=== PATIENT | female | born 1965 | race Caucasian/White ===

== ENCOUNTER → 2017-11-12 09:32 | Outpatient (CLI) | payer OTHER, SELFPAY ==
[2017-11-12 12:32] LABS: BUN 20 mg/dL (7-18); Glucose 86 mg/dL (74-106)
[2017-11-12 12:33] LABS: ALB/GLOB Ratio 1.1 RATIO (0.9-2.4); AST(SGOT) 17 U/L (15-37); Alanine Aminotransfer ALT/SGPT 30 U/L (13-56); Albumin, Serum 3.9 g/dL (3.2-5.0); Alkaline Phosphatase 51 U/L (45-117); Anion Gap 8 (5-15); BUN/Creat Ratio 28.7 RATIO (10-20); Calcium,Total 8.8 mg/dL (8.5-10.1); Chloride 104 mmol/L (98-107); Cholesterol 181 mg/dL (200); EST Glomerular Filtration Rate 93 mL/min (>60); Est Glom Filt Rate - Afr Amer 113 mL/min (>60); Globulin 3.4 g/dL (2.2-4.2); High Density Lipoprotein 45 mg/dL; Protein, Total 7.3 g/dL (6.4-8.2); Sodium Level 139 mmol/L (136-145); Triglycerides 91 mg/dL; Very Low Density Lipoprotein 18 mg/dL (5-40)
== END ==
PROVIDERS: Family Provider Family Medicine; PCP Family Medicine; Visit Provider Family Medicine
DX: E78.1 Pure hyperglyceridemia (principal)
CPT/HCPCS: 36415; 80053; 80061

== ENCOUNTER → 2017-12-12 08:23 | Outpatient (CLI) | payer OTHER, SELFPAY ==
[2017-12-12 10:37] LABS: Cholesterol 216 mg/dL (200); High Density Lipoprotein 38 mg/dL; Triglycerides 134 mg/dL; Very Low Density Lipoprotein 27 mg/dL (5-40)
== END ==
PROVIDERS: Family Provider Family Medicine; PCP Family Medicine; Visit Provider Family Medicine
DX: E78.1 Pure hyperglyceridemia (principal)
CPT/HCPCS: 36415; 80061

== ENCOUNTER → 2018-04-25 12:34 | Outpatient (CLI) | payer OTHER, SELFPAY ==
--- NOTE | 2018-04-25 12:36 | BI_ITS ---
MAMMOGRAPHY - BILATERAL SCREENING REASON FOR EXAM: Female, 52 years old. Routine annual screening examination. PERTINENT HISTORY: Sister with breast cancer. History of bilateral breast reduction surgery. TECHNIQUE: Digital bilateral breast keenan (3D mammographic acquisition) in the CC and MLO projections. 2-D mediolateral oblique (MLO) and craniocaudad (CC) views of both breasts were obtained. CAD: Full Field Digital Mammography with Computer Added Detection was performed. COMPARISON: Comparison is made with prior study dated November 10, 2016. FINDINGS: Breast Composition: The breasts are heterogeneously dense, which may obscure small masses. There are no dominant masses or suspicious calcifications. Benign appearing fat-containing bilateral axillary lymph nodes. No other significant abnormalities are identified. There has been no significant change since the prior study. BI/SCREENING MAMM (CAD), BILAT IMPRESSION: Stable bilateral screening mammogram. Yearly follow-up mammogram recommended. (A) ASSESSMENT CATEGORY: BIRADS Category 2: Benign. A letter regarding these results will be sent to the patient by the facility within 30 days. Approximately 10% of breast cancers are not detected by mammography. A normal mammogram should not delay biopsy of a clinically suspicious abnormality. [id number] Electronically Signed: Kevan Lopez MD at 10:42 EDT Tel [phone], Service support ,
== END ==
PROVIDERS: Family Provider Family Medicine; PCP Family Medicine; Visit Provider Family Medicine
DX: Z12.31 Encounter for screening mammogram for malignant neoplasm of breast (principal)
CPT/HCPCS: 77063; 77067

== ENCOUNTER 2018-12-18 10:00 | Outpatient (RCR) | payer OTHER, SELFPAY ==
--- NOTE | 2018-11-15 16:08 | HP.PTEVAL ---
Patient's Visit Information NIKHIL NIETO is a 53 year old F referred to Physical Therapy by Jayant Nieto MD with a diagnosis of Plantar fasciitis. Date of Evaluation: 11/15/18 Physical Therapist: FIGUEROA Connor - Visit Plan Frequency: 2x /Week Duration: 6 Weeks Plan: 2X/ week for US to B PF of B feet, stretching of B HS, gastroc, plantar fascia, with MT to B feet as well. If pt is no better after US/ serious stretching 3 X/ day then may try Ionto with dexameth. - Subjective Findings: Pt reports that she has had PF since last March (2017) in both feet and now it is much worse in the L foot. Saw Dr in April and recommended soleus stretches with ice and rest and she did a lot of that. She has gotten 7-8 different types of inserts. She does not walk her dog. She is in a lot of pain if she walks more than a block. A year ago she broke her R foot and was at PT at the other [facility] in town but never had PF before. 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 Current symptoms: she has ani in heel and the arch of her foot and sometimes the ball of her foot hurts. She has continues to stretch (sitting and pull toes up, soleus stretches ( against the wall and rocks it so it hurts several spots), she rubs her foot against the wooded arm rest of couch ( hurts but feels good). She does not ice much. If she walks 3-4 blocks then she ices cause there is a lot of pain. She has injured the L ankle several times in her life and her achilles tendon the L is shortened from a poorly treated sprainedankle and was casted into PF, and also had sesemoid bone removed on the L due to fracture in 2003. Having to stand is the worst. She sleeps through the night. Sometimes the feet are going numb now but not frequently. She has a lot of pain in the first steps in the moring and hard to put weight on it. - Pain R foot pain Pain Intensity (Out of 10): 2 L foot pain Pain Intensity (Out of 10): 4 - Objective Gait: Walks with stance time on the L and does not walk with heel to toe gait pattern. Pt is unable to walk on her heels. She can walk on her toes. L ankle AROM: neutral DF and 59 degrees PF, 18 degrees INV and 9 degrees EV. R ankle AROM: 11 degrees DF and 64 degrees PF, 32 degrees INV and 9 degrees EV. Palpation: Tender B heels and PF (worst on the L versus the R) also tender along the metheads ( alot of increased motion along the metatarsals). B ankle MMT: DF, PF, INV and EV 4+/5 - Goals Goal 1:: I HEP Goal Time Frame: 4-6 Weeks Goal 2:: Be able to stand on her feet for 4 hours at a time without having B foot pain. Goal Time Frame: 4-6 Weeks Goal 3:: Increase L ankle AROM to equal that of the R. (L ankle AROM: neutral DF and 59 degrees PF, 18 degrees INV and 9 degrees EV. R ankle AROM: 11 degrees DF and 64 degrees PF, 32 degrees INV and 9 degrees EV). Goal Time Frame: 4-6 Weeks Goal 4:: Be able to walk her dogs without having B foot pain Goal Time Frame: 4-6 Weeks - Rehabilitation Potential Rehabilitation Potential: Good - Anticipated Interventions Patient/Client Instruction: Educate patient on: Condition, Plan of Care For the Purpose of:: To decrease pain, To increase ROM, To improve nutrient delivery to tissue, To improve muscle performance and motor function, To improve ability to perform ADL's, To increase tolerance to activity/condition/position, To improve performance and independence with ADL's, To improve ability of physical actions for home/community/work/leisure, To improve gait and locomotor functions, To improve health of tissue, To decrease soft tissue restriction, To increase flexibility/ROM Therapeutic Exercise to Include: Strength training, Postural training, Flexibilty training, Gait and locomotor training, Passive ROM, Active ROM For the Purpose of:: To decrease pain, To increase ROM, To improve nutrient delivery to tissue, To improve muscle performance and motor function, To improve ability to perform ADL's, To increase tolerance to activity/condition/position, To improve performance and independence with ADL's, To improve ability of physical actions for home/community/work/leisure, To improve health of tissue, To decrease soft tissue restriction, To increase flexibility/ROM Manual Therapy Techniques to Include: Passive ROM, Soft tissue mobilization For the Purpose of:: To decrease pain, To increase ROM, To improve nutrient delivery to tissue, To improve muscle performance and motor function, To improve ability to perform ADL's IF ES: Yes Ultrasound (thermal/non thermal): Yes For the Purpose of:: To decrease pain, To decrease swelling/inflammation, To increase ROM, To improve nutrient delivery to tissue Thank you for the opportunity to evaluate your patient. For Medicare and Medicare HMO plans, please review the plan of care and approve it. It will need to be FAXED BACK to us at [phone] for Medicare purposes. For Medicare only, by signing this I certify the plan of care. Please let me know if there are questions or concerns regarding this plan of care. Physician Signature: Date:
--- NOTE | 2018-12-18 12:11 | HP.PTDCSUM_ITS ---
HP - PT D/C Summary It has been my pleasure to treat NIKHIL NIETO under orders from Jayant Nieto MD, for the diagnosis of Plantar fasciitis for a total of 11 visit(s). Discharge Date: 12/18/18 Please see the following information for a summary of their discharge status. - Subjective Subjective: Pt reports that some days are better than others. She reports that it still hurts when she is standing on her feet. Activity equals pain. Pt thinks that the massage and the ionto may have helped. She reports that she is strengthening at home. She will be leaving to go to [place] next week and today is her last appointment. - Pain R foot pain Pain Intensity (Out of 10): 0 L foot pain Pain Intensity (Out of 10): 4 L ankle Pain Intensity (Out of 10): Unrated - Overall Improvement % Improvement: 10 - Objective Objective/Function: DF B 4 degrees. Pt still not able to stand on her feet for any length of time and she is not able to walk her dogs. - Goals Goal 1:: I HEP Goal Progress: Goal Met Goal 2:: Be able to stand on her feet for 4 hours at a time without having B foot pain. Goal Progress: Not Progressing Goal 3:: Increase L ankle AROM to equal that of the R. (L ankle AROM: neutral DF and 59 degrees PF, 18 degrees INV and 9 degrees EV. R ankle AROM: 11 degrees DF and 64 degrees PF, 32 degrees INV and 9 degrees EV). Goal Progress: Progressing Goal 4:: Be able to walk her dogs without having B foot pain Goal Progress: Not Progressing - Plan Plan: DC PT to HEP - D/C Information Discharge Comments: DC PT to [facility] If there are questions or concerns regarding this patient's physical therapy, please feel free to call me at [phone]. Thank you for the referral of this patient. Sincerely, Liana Fleming, MPT
== END 2018-12-18 19:00 | disposition home or self-care (01) ==
LOC: PT 10:00
PROVIDERS: Family Provider Family Medicine; PCP Family Medicine; Referring Provider Family Medicine; Visit Provider Family Medicine
DX: M72.2 Plantar fascial fibromatosis (principal)
CPT/HCPCS: 97033; 97035; 97110; 97140; 97161

== ENCOUNTER → 2019-05-10 09:34 | Outpatient (CLI) | payer OTHER, SELFPAY ==
[2019-05-10 10:41] LABS: Absolute Lymphocyte Count 1.36 X10^3/uL (0.83-4.51); Absolute Neutrophil Count 1.7 X10^3/uL (2.0-7.7); Basophil# 0.02 X10^3/uL; Basophil% 0.6 % (0-1); Eosinophil# 0.05 X10^3/uL; Eosinophils% 1.5 % (0-5); Hemoglobin 14.7 g/dL (12.0-15.0); Lymphocyte # 1.36 X10^3/ul (4.0); Lymphocyte % 40.6 % (19-41); Mean Corp Hgb Conc 33.4 g/dL (32-36); Mean Corpuscular Hgb 30.6 pg (27.0-32.0); Mean Corpuscular Volume 91.7 fL (81-99); Mean Platelet Vol. 9.6 fl (6.2-12.0); Monocyte# 0.23 X10^3/uL; Monocyte% 6.9 % (0-10); NRBC Flagged by Analyzer 0 % (0-5); Neutrophil # 1.67 X10^3/uL (2.7-7.7); Neutrophil % 49.8 % (47-70); Platelet Count 269 K/mm3 (150-450); RBC Distribution Width CV 12.1 % (11.6-14.6); RBC Distribution Width SD 40.5 fl (35.1-43.9); White Blood Count 3.4 K/mm3 (4.4-11.0)
[2019-05-10 11:23] LABS: ALB/GLOB Ratio 1.2 RATIO (0.9-2.4); AST(SGOT) 19 U/L (15-37); Alanine Aminotransfer ALT/SGPT 38 U/L (13-56); Albumin, Serum 3.7 g/dL (3.2-5.0); Alkaline Phosphatase 54 U/L (45-117); Anion Gap 5 (5-15); BUN 16 mg/dL (7-18); BUN/Creat Ratio 24.7 RATIO (10-20); Calcium,Total 8.4 mg/dL (8.5-10.1); Chloride 110 mmol/L (98-107); Cholesterol 185 mg/dL (200); Creatinine, Serum 0.65 mg/dL (0.55-1.02); EST Glomerular Filtration Rate 101 mL/min (>60); Est Glom Filt Rate - Afr Amer 122 mL/min (>60); Globulin 3.2 g/dL (2.2-4.2); Glucose 92 mg/dL (74-106); High Density Lipoprotein 39 mg/dL; Potassium 4.1 mmol/L (3.5-5.1); Protein, Total 6.9 g/dL (6.4-8.2); Sodium Level 143 mmol/L (136-145); Triglycerides 160 mg/dL; Very Low Density Lipoprotein 32 mg/dL (5-40)
[2019-05-12 09:01] LABS: Vitamin B12 1297 pg/mL (211-911); Vitamin D,25 Hydroxy 25.4 ng/mL (29.95-100.01)
== END ==
PROVIDERS: Family Provider Family Medicine; PCP Family Medicine; Referring Provider Family Medicine; Visit Provider Family Medicine
DX: E53.8 Deficiency of other specified B group vitamins (principal); E78.1 Pure hyperglyceridemia; E55.9 Vitamin D deficiency, unspecified; M79.672 Pain in left foot; T50.A95 Adverse effect of other bacterial vaccines
CPT/HCPCS: 36415; 80053; 80061; 82306; 82607; 82746; 85025

== ENCOUNTER → 2019-05-13 07:48 | Outpatient (CLI) | payer OTHER, SELFPAY ==
--- NOTE | 2019-05-13 07:50 | ECHOD_ITS ---
Reason For Study: FAM HX AA Procedure This was a 2D Doppler, Color Flow transthoracic echocardiogram. The exam was of adequate technical quality. Exam performed in department. Left Ventricle Normal LV size. Left ventricular systolic function is normal. The estimated ejection fraction is 65 %. Diastolic function is indeterminate. No regional wall motion abnormalities noted. Right Ventricle Normal RV size. Normal systolic function. Atria Normal left atrium. Normal right atrium. No doppler evidence for ASD. Mitral Valve There is no mitral annular calcification. Normal mitral valve. Mild (1+) mitral valve insufficiency. Tricuspid Valve Normal tricuspid valve. Trivial tricuspid valve insufficiency. Right ventricular systolic pressure estimated to be 20 mmHg. Aortic Valve Trisinus/trileaflet aortic valve. Normal aortic valve. Pulmonic Valve The pulmonic valve is not well visualized. Trivial pulmonic valve insufficiency. Great Vessels Borderline enlarged to mildly dilated ascending aorta. Pericardium/Pleural No pericardial effusion. MMode/2D Measurements & Calculations LVIDd: 4.4 cm IVSd: 0.88 cm Ao root diam: 3.9 cm LVIDs: 3.0 cm LVPWd: 0.89 cm RVDd: 3.1 cm FS: 31.0 % LAV(MOD-bp): 48.6 ml LVAd ap4: 30.9 cm2 SV(MOD-sp4): 52.7 ml LAV(MOD-bp) Indexed: 25.1 ml/m2 EDV(MOD-sp4): 96.7 ml LAV(MOD-sp2): 39.4 ml EDV(sp4-el): 99.0 ml LAV(MOD-sp4): 60.1 ml LVAs ap4: 18.3 cm2 ESV(MOD-sp4): 44.0 ml ESV(sp4-el): 43.7 ml EF(MOD-sp4): 54.5 % EF(sp4-el): 55.8 % SV(sp4-el): 55.3 ml LA A4 area: 19.6 cm2 LA dimension(2D): 3.6 cm RA A4 area: 14.1 cm2 Time Measurements MV dec time: 0.21 sec Doppler Measurements & Calculations MV E max rafael: 74.4 cm/sec Lat Peak E' Rafael: 7.6 cm/sec Med Peak E' Rafael: 4.0 cm/sec MV A max rafael: 91.4 cm/sec E/E' lat: 9.9 E/E' med: 18.6 MV E/A: 0.81 Ao V2 max: 168.0 cm/sec LV V1 max: 104.2 cm/sec PA V2 max: 89.4 cm/sec Ao max P.3 mmHg LV V1 max P.3 mmHg TR max rafael: 204.0 cm/sec TR max P.6 mmHg Interpretation Summary Left ventricular systolic function is normal. The estimated ejection fraction is 65 %. Mild (1+) mitral valve insufficiency. Trivial tricuspid valve insufficiency. Trivial pulmonic valve insufficiency. Borderline enlarged to mildly dilated ascending aorta. Right ventricular systolic pressure estimated to be 20 mmHg. Diastolic function is indeterminate. Ordering Physician: Jayant Nieto Referring Physician: Jayant Nieto Performed By: Meghan Nunes, LUIS, RVT
== END ==
PROVIDERS: Family Provider Family Medicine; PCP Family Medicine; Referring Provider Family Medicine; Visit Provider Family Medicine
DX: Z82.49 Family history of ischemic heart disease and other diseases of the circulatory system (principal)
CPT/HCPCS: 93306

== ENCOUNTER → 2019-05-14 07:42 | Outpatient (CLI) | payer OTHER, SELFPAY ==
--- NOTE | 2019-05-14 07:44 | BI_ITS ---
MAMMOGRAPHY - BILATERAL SCREENING REASON FOR EXAM: Female, 53 years old. Routine annual screening examination. PERTINENT HISTORY: Sister with breast cancer. Remote bilateral breast reduction and 3 episodes of mastitis. TECHNIQUE: Digital bilateral breast lisa (3D mammographic acquisition) in the CC and MLO projections. 2-D mediolateral oblique (MLO) and craniocaudad (CC) views of both breasts were obtained. CAD: Full Field Digital Mammography with Computer Added Detection was performed. COMPARISON: Comparison is made with prior study dated April 25, 2018 and November 10, 2016. FINDINGS: Breast Composition: The breasts are heterogeneously dense, which may obscure small masses. There are no dominant masses or suspicious calcifications. Stable asymmetry of breast tissue with more breast tissue is seen in the axillary region of the right breast as compared to the left side. Stable appearance of the fat-containing bilateral axillary lymph nodes. No other significant abnormalities are identified. There has been no significant change since the prior study. BI/SCREEN MAMM (CAD) W/LISA BILAT IMPRESSION: Stable bilateral screening mammogram. Yearly follow-up mammogram recommended. (A) ASSESSMENT CATEGORY: BIRADS Category 2: Benign. A letter regarding these results will be sent to the patient by the facility within 30 days. Approximately 10% of breast cancers are not detected by mammography. A normal mammogram should not delay biopsy of a clinically suspicious abnormality. [id number] Electronically Signed: Kevan Lopez, at 9:52 EDT , Service support ,
== END ==
PROVIDERS: Family Provider Family Medicine; PCP Family Medicine; Referring Provider Family Medicine; Visit Provider Family Medicine
DX: Z12.31 Encounter for screening mammogram for malignant neoplasm of breast (principal); Z80.3 Family history of malignant neoplasm of breast
CPT/HCPCS: 77063; 77067

== ENCOUNTER → 2020-03-29 08:57 | Outpatient (CLI) | payer OTHER, SELFPAY ==
--- NOTE | 2020-03-29 09:03 | RAD_ITS ---
STUDY: X-RAY CHEST REASON FOR EXAM: Female, 54 years old. Atypical chest pain TECHNIQUE: 2 PA and lateral views of the chest. COMPARISON: None. FINDINGS: The lungs are clear and expanded. There is no demonstrated pleural abnormality. Normal size heart. Normal mediastinum and harman. Normal visualized pulmonary arteries. Normal visualized aortic arch and descending thoracic aorta. Normal visualized thoracic spine. Normal visualized ribs, clavicles, and shoulders. There is no demonstrated abnormality of the visualized soft tissue structures of the upper abdomen. RAD/Chest PA and Lateral IMPRESSION: No acute pulmonary process Electronically Signed: Harrison Burgess MD at 10:37 EDT , Service support ,
[2020-03-29 09:12] LABS: Lyme Ab Screen Interpretation REF LAB
[2020-03-29 12:26] LABS: Erythrocyte Sedimentation Rate 5 mm/hr (0-30)
[2020-03-29 12:27] LABS: Absolute Lymphocyte Count 1.42 X10^3/uL (0.83-4.51); Absolute Neutrophil Count 1.8 X10^3/uL (2.0-7.7); Basophil# 0.02 X10^3/uL; Basophil% 0.5 % (0-1); Eosinophil# 0.07 X10^3/uL; Eosinophils% 1.9 % (0-5); Hematocrit 42.8 % (37-47); Hemoglobin 14.2 g/dL (12.0-15.0); Lymphocyte # 1.42 X10^3/ul (4.0); Mean Corp Hgb Conc 33.2 g/dL (32-36); Mean Corpuscular Hgb 30.7 pg (27.0-32.0); Mean Corpuscular Volume 92.4 fL (81-99); Mean Platelet Vol. 10.2 fl (6.2-12.0); Monocyte# 0.31 X10^3/uL; Monocyte% 8.5 % (0-10); NRBC Flagged by Analyzer 0 % (0-5); Neutrophil # 1.81 X10^3/uL (2.7-7.7); Neutrophil % 49.8 % (47-70); Platelet Count 284 K/mm3 (150-450); RBC Distribution Width CV 11.9 % (11.6-14.6); RBC Distribution Width SD 39.9 fl (35.1-43.9); Red Blood Count 4.63 M/mm3 (4.2-5.4); White Blood Count 3.6 K/mm3 (4.4-11.0)
[2020-03-29 13:00] LABS: ALB/GLOB Ratio 1.1 RATIO (0.9-2.4); AST(SGOT) 17 U/L (15-37); Alanine Aminotransfer ALT/SGPT 34 U/L (13-56); Albumin, Serum 3.9 g/dL (3.2-5.0); Alkaline Phosphatase 53 U/L (45-117); Anion Gap 5 (5-15); BUN 17 mg/dL (7-18); BUN/Creat Ratio 27.9 RATIO (10-20); CRP 5.36 mg/L (0.0-3.0); Calcium,Total 8.7 mg/dL (8.5-10.1); Chloride 110 mmol/L (98-107); Creatinine, Serum 0.61 mg/dL (0.55-1.02); EST Glomerular Filtration Rate 108 mL/min (>60); Est Glom Filt Rate - Afr Amer 130 mL/min (>60); Free T3 2.9 pg/mL (2.18-3.98); Globulin 3.5 g/dL (2.2-4.2); Glucose 82 mg/dL (74-106); Potassium 3.9 mmol/L (3.5-5.1); Protein, Total 7.4 g/dL (6.4-8.2); Sodium Level 140 mmol/L (136-145); T4 Free Direct 1.15 ng/dL (0.76-1.46); Thyroid Stim Hormone (TSH) 2.06 uIU/mL (0.358-3.74)
[2020-03-30 15:31] LABS: ANTINUCLEAR ANTIBODIES DIRECT Negative (Negative)
[2020-03-31 20:45] LABS: Anti-Thyroglobulin AB < 1.0 IU/mL (0.0-0.9); Lyme Scn Total Ab w/Rflx <0.91 ISR (0.00-0.90); Thyroglobulin, Serum Qt. 12.8 ng/mL (1.5-38.5); Thyroid Peroxidase AB < 9 IU/mL (0-34)
== END ==
PROVIDERS: PCP Family Medicine; Referring Provider Family Medicine; Visit Provider Family Medicine
DX: R07.89 Other chest pain (principal); R53.83 Other fatigue; M25.50 Pain in unspecified joint; R10.30 Lower abdominal pain, unspecified
CPT/HCPCS: 36415; 71046; 80053; 84432; 84439; 84443; 84481; 85025; 85652; 86038; 86140; 86376; 86618; 86800

== ENCOUNTER → 2020-04-06 07:50 | Outpatient (CLI) | payer OTHER, SELFPAY ==
--- NOTE | 2020-04-06 07:55 | CT_ITS ---
STUDY: CT ABDOMEN AND PELVIS WITH CONTRAST REASON FOR EXAM: Female, 54 years old. SUPRAPUBIC AND LOW BACK PAIN x 2 months. PRIOR BLADDER SLING SURGERY RADIATION DOSAGE (If Supplied By Facility): CTDIvol = ( 20.75 ) mGy, DLP = ( 945.72 ) mGycm TECHNIQUE: Transaxial images were obtained from the dome of the diaphragm to the symphysis pubis with oral contrast. Oral and amp; IV Readi-CAT and amp; 100mL Isovue-300 was administered. Sagittal and coronal images were reconstructed. Individualized dose optimization techniques were used for this CT. COMPARISON: None. FINDINGS: The visualized lung bases are unremarkable. The visualized portions of the heart are within normal limits. There is decreased attenuation of the liver consistent with steatosis. Normal gallbladder and extrahepatic biliary system. Normal spleen. Normal pancreas. Normal bilateral adrenal glands. There is a 1.3 cm cyst in the anterior and portion of the right kidney. A punctate calcification is seen along the lower pole calyx of the right kidney. Normal left kidney. There is a small hiatal hernia. Normal small intestine. Normal colon. The appendix is visualized and appears normal. Normal abdominal aorta. Normal inferior vena cava. There is borderline retroperitoneal lymphadenopathy with enlarged nodes no greater than 10mm in the short axis diameter. Normal urinary bladder. There is a 5.6 cm x 4.4 cm cyst in the right adnexa. Small benign appearing bilateral inguinal lymph nodes. Normal osseous structures. CT/Abdomen/Pelvis WITH Contrast IMPRESSION: 5.6 cm x 4.4 cm cyst in the right adnexa. Fatty infiltration of the liver. Electronically Signed: Kevan Lopez, at 8:32 EDT , Service support ,
== END ==
PROVIDERS: PCP Family Medicine; Referring Provider Family Medicine; Visit Provider Family Medicine
DX: R10.30 Lower abdominal pain, unspecified (principal)
CPT/HCPCS: 74177; Q9967

== ENCOUNTER → 2020-04-13 14:19 | Outpatient (CLI) | payer OTHER, SELFPAY ==
[2020-04-13 13:24] VITALS: BMI 29.5
[2020-04-14 10:40] LABS: Cancer Antigen 125 6.7 U/mL (0.0-38.1); Carcinoembryonic Antigen 0.7 ng/mL (0.0-4.7)
== END ==
PROVIDERS: PCP Family Medicine; Referring Provider Obstetrics & Gynecology; Visit Provider Obstetrics & Gynecology
DX: N83.209 Unspecified ovarian cyst, unspecified side (principal)
CPT/HCPCS: 36415; 82378; 86304

== ENCOUNTER → 2020-04-21 14:55 | Outpatient (CLI) | payer OTHER, SELFPAY ==
[2020-04-13 13:24] VITALS: BMI 29.5
[2020-04-15 10:30] VITALS: BMI 29.5
--- NOTE | 2020-04-21 14:57 | US_ITS ---
STUDY: ULTRASOUND OF THE FEMALE PELVIS - COMPLETE REASON FOR EXAM: Female, 54 years old. Rt adnexa cyst LMP: The patient is postmenopausal. TECHNIQUE: Transabdominal and Transvaginal TECHNICAL QUALITY: Adequate. COMPARISON: Comparison is made with prior CT scan abdomen and pelvis dated 04/06/2020. FINDINGS: The uterus is anteverted and is in a midline position. The uterus measures 7.1 cm x 5.4 cm x 3.4 cm. Normal uterine cervix. The endometrium is thickened and measures 7 mm in thickness, and is hyperechoic. There is no demonstrated endometrial mass. And heterogeneous appearance of the uterine echotexture although no focal fibroid is seen. I.U.D. - The patient does not have an I.U.D. The right ovary is visualized. The right ovary measures 5.5 cm x 4.2 cm x 4.0 cm. There is a 4.8 cm x 4.2 cm x 3.8 cm simple cyst in the right ovary. There is no visualized right adnexal mass or complex lesion. There is normal arterial and normal venous vascularity. The left ovary is visualized. The left ovary measures 1.9 cm x 2 cm x 1.5 cm. There is no left ovarian cyst or ovarian mass. There is no visualized left adnexal mass or complex lesion. There is normal arterial and normal venous vascularity. There is no fluid in the cul-de-sac. The pre void volume of the bladder was 249 ml. Polycystic ovary disease: No. US/Transvaginal Non- IMPRESSION: Thickened endometrium. 4.8 cm x 4.2 cm x 3.8 cm cyst in the right ovary. Electronically Signed: Kevan Lopez, at 16:01 EDT , Service support ,
--- NOTE | 2020-04-21 14:57 | US_ITS ---
STUDY: ULTRASOUND OF THE FEMALE PELVIS - COMPLETE REASON FOR EXAM: Female, 54 years old. Rt adnexa cyst LMP: The patient is postmenopausal. TECHNIQUE: Transabdominal and Transvaginal TECHNICAL QUALITY: Adequate. COMPARISON: Comparison is made with prior CT scan abdomen and pelvis dated 04/06/2020. FINDINGS: The uterus is anteverted and is in a midline position. The uterus measures 7.1 cm x 5.4 cm x 3.4 cm. Normal uterine cervix. The endometrium is thickened and measures 7 mm in thickness, and is hyperechoic. There is no demonstrated endometrial mass. And heterogeneous appearance of the uterine echotexture although no focal fibroid is seen. I.U.D. - The patient does not have an I.U.D. The right ovary is visualized. The right ovary measures 5.5 cm x 4.2 cm x 4.0 cm. There is a 4.8 cm x 4.2 cm x 3.8 cm simple cyst in the right ovary. There is no visualized right adnexal mass or complex lesion. There is normal arterial and normal venous vascularity. The left ovary is visualized. The left ovary measures 1.9 cm x 2 cm x 1.5 cm. There is no left ovarian cyst or ovarian mass. There is no visualized left adnexal mass or complex lesion. There is normal arterial and normal venous vascularity. There is no fluid in the cul-de-sac. The pre void volume of the bladder was 249 ml. Polycystic ovary disease: No. US/Pelvic (Non ) IMPRESSION: Thickened endometrium. 4.8 cm x 4.2 cm x 3.8 cm cyst in the right ovary. Electronically Signed: Kevan Lopez, at 16:01 EDT , Service support ,
== END ==
PROVIDERS: PCP Family Medicine; Referring Provider Obstetrics & Gynecology; Visit Provider Obstetrics & Gynecology
DX: N83.209 Unspecified ovarian cyst, unspecified side (principal)
CPT/HCPCS: 76830; 76856

== ENCOUNTER 2020-04-27 07:55 | Day surgery (SDC) | payer OTHER, SELFPAY ==
[2020-04-13 13:24] VITALS: BMI 29.5
[2020-04-15 10:30] VITALS: BMI 29.5
--- NOTE | 2020-04-20 12:08 | EKG12_ITS ---
Test Reason : PREOP Blood Pressure : / mmHG Vent. Rate : 074 BPM Atrial Rate : 074 BPM P-R Int : 176 ms QRS Dur : 086 ms QT Int : 408 ms P-R-T Axes : 059 020 047 degrees QTc Int : 452 ms Normal sinus rhythm Normal ECG Confirmed by YUE US, YUNIOR ([id number]), newspaper editor managing CLAIRE HUNT ([id number]) on 04/21/2020 10:33:34 AM Referred By: Funmi Zimmermna Confirmed By:YUNIOR TURNER MD
--- NOTE | 2020-04-26 05:42 | PCM.HPOB.BLA ---
- Problem List (1) Ovarian cyst Status: Acute Comment: ultrasound ordered, ca125 and cea, plan laparosocpic BSO. right ovary 5 cm simple cyst. (2) Endometrial thickening on ultrasound Status: Acute Comment: 7 mm. 2014 menopause History and Physical Date of Admission: 04/27/20 Intake Vital Signs 04/13/20 Height 5 ft 6 in 04/13/20 Weight: 183 lb 04/13/20 BMI 29.5 04/13/20 BP 110/82 H Intake Visit Reasons: RT OVARIAN CYST / Dr. Forman ref. Chief Complaint: R Ovarian cyst Crayon Sawyer Required: No Is patient in pain?: Yes Allergies No Known Allergies Allergy (Verified 04/13/20 13:25) Medications cholecalciferol (vitamin D3) 50 mcg (2,000 unit) capsule 50 mcg PO DAILY 04/13/20 [History Confirmed 04/13/20] cyanocobalamin (vitamin B-12) 1,000 mcg capsule 1,000 mcg PO DAILY 04/13/20 [History Confirmed 04/13/20] escitalopram oxalate 10 mg tablet 10 mg PO DAILY 04/13/20 [History Confirmed 04/13/20] fenofibrate 150 mg capsule 150 mg PO DAILY 04/13/20 [History Confirmed 04/13/20] loratadine 10 mg tablet 10 mg PO DAILY 04/13/20 [History Confirmed 04/13/20] Is last menstrual period known: No Post menopausal: Yes Date of menopause: 08/13/14 Patient : No : No [facility] Medical History (Updated 04/13/20 @ 14:[address] Funmi Zimmerman MD) Anxiety with depression (Acute) Fatigue (Acute) Hyperlipidemia (Acute) Sleep apnea (Acute) Surgical History (Updated 04/13/20 @ 13:28 by Glo Stewart) History of foot surgery (Acute) History of tonsillectomy (Acute) Status post breast reduction (Acute) bladder sling (Acute) Family History (Updated 04/13/20 @ 13:29 by Glo Stewart) Sister Breast cancer Mother Cancer hodgkins lymphoma Social History (Updated 04/13/20 @ 14:[address] 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 Forman ref. : Details: NIKHIL FORMAN is a 54 year old who presents for low back pain, and was referred here by dr forman due to an ovarian cyst seen on CT scna. she is having hot flashes now where she hadn't had them in previous years, and now she is increased fatigue. she is also having lower pelvic cramping all the time. she is having urinary frequency. she also has a thickened endometrium on US. Female Reproductive History Questions: Metorrhagia: No, Sexually active: Yes, Dyspareunia: Yes, PCB: No Date of menopause: 08/13/14 Menopausal Symptoms: No night sweats Pregancy History 4 Elective abortions Hx Para 3 Spontaneous abortions Hx # Term Pregnancies Ectopic pregnancies Hx # Pregnancies Multiple births # of living children Past Pregnancies Del. Date Name GA/Weeks Outcome Route Bth Weight Gen Labor Lgth Anesthesia Del Locatn Provider FOB Unknown 1992 Renetta live - full term Unknown 1994 [place] live - full term Unknown 1997 Mayte live - full term ROS Const Constitutional: Denies fatigue, night sweats, weight gain or weight loss ENT ENT: Reports system reviewed and no additional complaints, except as docu Cardio Card: Denies chest pain Resp Resp: Denies cough or dyspnea GI GI: Reports as per HPI; denies constipation, nausea or vomiting : Reports as per HPI, pelvic pain, sexual problems, urinary frequency and urinary urgency; denies nipple discharge, prolapse symptoms, urinary incontinence, vaginal discharge, vaginal dryness, vaginal odor or vaginal itching Musc Musc: Denies joint pain, back pain or muscle weakness Skin Skin/Breast: Denies hair loss, change in hair, dry skin, breast lump, breast pain, breast skin changes or nipple discharge Neuro Neuro: Reports system reviewed and no additional complaints, except as docu Psych Psych: Reports system reviewed and no additional complaints, except as docu Endo Endo: Denies cold intolerance, excessive sweating, heat intolerance or increased thirst Adama/Lymph Hematologic/Lymphatic: Denies easy bleeding, Denies easy bruising, Denies enlarged lymph nodes Exam Const General: cooperative, healthy appearing, comfortable, no acute distress, well developed Orientation: alert [facility] Head: normal to inspection, normocephalic Ears: hearing grossly normal bilaterally, external ears normal Nose: external nose normal, nares normal Face and sinus: normal facial exam Neck Neck: normal visual inspection, no lymphadenopathy Thyroid: thyroid normal Chest Chest palpation & inspection: normal inspection of the chest Resp Effort & Inspection: normal respiratory effort Auscultation: clear to auscultation bilaterally Cardio Rate: regular rate Rhythm: regular rhythm Heart Sounds: S1 normal, S2 normal GI Inspection: normal to inspection, non-distended Palpation: soft, no hepatosplenomegaly, tender External Female Exam: normal external appearance, normal appearance of the urethra Urethra: normal appearance of the urethra, normal palpation, no discharge Speculum Exam - Vagina: normal appearance of the vagina, normal vaginal discharge Musc Other: gross motor intact no deficits, full bilateral strength Skin General: no rashes or lesions noted Neuro General: alert, awake, moves all extremities, no focal motor deficits Motor: muscle tone normal throughout Extrem General: normal to inspection, no pedal edema Psych Appearance: grossly normal Mental Status: mental status grossly normal Affect: normal affect Speech and Movement: speech and movement normal Assessment & Plan Problems 1. Ovarian cyst N83.209 ultrasound ordered, ca125 and cea, plan laparosocpic BSO Plan After discussing the patient's diagnosis and treatment plan options, patient wishes to proceed with surgical management. I have discussed with the patient the risks, benefits, and alternatives of the procedure which include but are not limited to risks of anesthesia, bleeding, infection, possible damage to bowel, bladder, or surrounding vasculature which could lead to additional surgery to evaluate any complications. Patient agrees to procedure and wishes to proceed. ACOG/uptodate references given for additional information regarding procedure. Orders Orders: Cancer Antigen 125 Today N83.209 Carcinoembryonic Antigen Today N83.209 Pelvic (Non ) Today N83.209 Transvaginal Non- Today N83.209 Coding Level of Care Code Off vis,new,level 5 Diagnoses Ovarian cyst N83.209
[2020-04-27] VITALS (7 sets, daily range): BP systolic 111–125; BP diastolic 57–93; PULSE 52–69; RESP 16; TEMP 36.5–36.8; O2SAT 97–100; BMI 30.8
--- NOTE | 2020-04-27 | FLU_PTH ---
PATIENT: NIKHIL ORTEGA LOC: [facility] [place] U#:[id number] AGE/SX: 54/F ROOM: RE04/27/[address]: Dr. Funmi Zimmerman MD : 1965 BED: DIS: 04/27/2020 SPEC #: [id number] RECD: 04/27/20 13:21 STATUS: JUAN MIGUEL JANAY #: [id number] SILAS: 04/27/20 00:[address]: uFnmi Zimmerman DEPT: CYTOLOGY RECD BY: Brice Florence ENTERED: 04/27/20 13:21 SP TYPE: Fluid OTHR DR: Dr. Jayant Nieto MD Tissues: A - CYST B - Pelvis, NOS Procedures: Special Stain Group II Cytospin Fluid HEADER OPERATION: Laparoscopic salingo-oophorectomy, cytologic washings PRE-OP DIAGNOSIS: Ovarian cyst N83.209 TISSUE SUBMITTED: A - Cyst fluid, B - Pelvic fluid DIAGNOSIS CYTOLOGY A. Cyst fluid (cytospin and cell block): Consistent with benign cyst contents. See comment. B. Pelvic fluid (cytospin and cell block): Negative for malignancy. TIKA:abdirizak 04/29/20 COMMENT A. 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 CYTOLOGY STUDY Slides are reviewed. CYTOLOGY GROSS A - Received is 15 ml of red cloudy fluid labeled with the patient's name and and designated per the requisition as cyst. Submitted for cytology preparation including cell block. B - Received is 5 ml of light yellow cloudy fluid labeled with the patient's name and and designated per the requisition as pelvic. Submitted for cytology preparation including cell block. / abdirizak 04/27/20 TC:5 CPT: 23173 x2, 52374 x2
[2020-04-27 08:35] LABS: Absolute Lymphocyte Count 1.49 X10^3/uL (0.83-4.51); Absolute Neutrophil Count 1.7 X10^3/uL (2.0-7.7); Basophil# 0.03 X10^3/uL; Basophil% 0.8 % (0-1); Eosinophil# 0.05 X10^3/uL; Eosinophils% 1.4 % (0-5); Hematocrit 41.8 % (37-47); Hemoglobin 13.7 g/dL (12.0-15.0); Lymphocyte # 1.49 X10^3/ul (4.0); Mean Corp Hgb Conc 32.8 g/dL (32-36); Mean Corpuscular Hgb 30.4 pg (27.0-32.0); Mean Corpuscular Volume 92.7 fL (81-99); Mean Platelet Vol. 9.8 fl (6.2-12.0); Monocyte# 0.28 X10^3/uL; Monocyte% 7.9 % (0-10); NRBC Flagged by Analyzer 0 % (0-5); Neutrophil # 1.68 X10^3/uL (2.7-7.7); Neutrophil % 47.3 % (47-70); Platelet Count 246 K/mm3 (150-450); Red Blood Count 4.51 M/mm3 (4.2-5.4); White Blood Count 3.6 K/mm3 (4.4-11.0)
[2020-04-27] MEDS: Lactated Ringers 1,000 ML 100 ML IV ×2 (08:40→11:31)
[2020-04-27 08:52] LABS: Anion Gap 4 (5-15); BUN 17 mg/dL (7-18); BUN/Creat Ratio 23.3 RATIO (10-20); Calcium,Total 8.7 mg/dL (8.5-10.1); Chloride 110 mmol/L (98-107); Creatinine, Serum 0.73 mg/dL (0.55-1.02); EST Glomerular Filtration Rate 88 mL/min (>60); Est Glom Filt Rate - Afr Amer 106 mL/min (>60); Estimated Creatinine Clearance 77.43 ml/min; Glucose 94 mg/dL (74-106); Sodium Level 140 mmol/L (136-145)
--- NOTE | 2020-04-27 09:30 | OV_PTH ---
PATIENT: NIKHIL ORTEGA LOC: [facility] [place] U#:[id number] AGE/SX: 54/F ROOM: RE04/27/[address]: Dr. Funmi Zimmerman MD : 1965 BED: DIS: 04/27/2020 SPEC #: [id number] RECD: 04/27/20 15:00 STATUS: JUAN MIGUEL JANAY #: [id number] SILAS: 04/27/20 09:[address]: Funmi Zimmerman DEPT: SURGICAL PATHOLOGY RECD BY: Seun oNel ENTERED: 04/28/20 09:45 SP TYPE: OVARY OTHR DR: Dr. Jayant Nieto MD Tissues: A - Ovary, NOS B - Endometrial cavity Procedures: Special Stain Group II Mucicarmine Stain (control) Surgery Specimen Level IV Surgery Specimen Level V HEADER OPERATION: Laparoscopic salpingo-oophorectomy PRE-OP DIAGNOSIS: Ovarian cyst N83.209 TISSUE SUBMITTED: A - Bilateral fallopian tubes and ovaries, B - Endometrial curettings and polyp MICROSCOPIC DIAGNOSIS A. 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 Second ovary - no pathologic diagnosis. Bilateral fallopian tubes - no pathologic diagnosis. See comment. B. Endometrial curettings and polyp: Endometrial polyp with simple cystic hyperplasia without atypia. Scant fragments of benign endometrial tissue predominantly consist of stromal tissue. Fragments of myometrium. Fragments of benign ectocervical epithelium. SJ:abdirizak 04/29/20 COMMENT A. Mucin stain with matched control is used in the evaluation of the specimen. The seromucinous cystadenoma predominantly consists of serous component. Case has been reviewed in consultation with Dr. Leyva who concurs with the above diagnosis. IDC:AM MICROSCOPIC DESCRIPTION Slides are reviewed. GROSS DESCRIPTION A - Received in fixative is one container labeled with the patient's name and designated bilateral fallopian tubes and ovaries. The specimen consists of bilateral fallopian tubes and ovaries. The ovaries and fallopian tubes are not identified as right or left. One of the fallopian tube measures 6 cm in length and up to 0.6 cm in diameter. The fimbrial end is identified. No tubo-ovarian adhesions are noted. A paratubal cyst is noted close to the fimbrial end measuring 2 cm in greatest dimension. The cyst is filled with clear fluid. The adjacent ovary measures 3 x 1.5 x 1.2 cm. Sections reveal unremarkable cut surfaces. The second fallopian tube measures 6 cm in length and 0.5 cm in diameter. The fimbrial end is identified. No tuboovarian adhesions are noted. The adjacent second ovary consists of cystic ovary measuring 4.5 x 3.5 x 2 cm. No papillations are identified. Sections reveal the ovary is completely replaced by a cyst with a smooth wall without any papillation measuring 4 x 3 x 2 cm. No fluid is identified in the ovarian cyst. Supervisor Grower sections are submitted in six cassettes as follows: 1 & 2 - one fallopian tube and adjacent ovary (1 - fallopian tube, paratubal cyst, 2 - ovary), 3-6 - second fallopian tube and ovary (3??fallopian tube, 4-6 - second ovary). B - Received in fixative is one container labeled with the patient's name and designated endometrial curettings and polyp. The specimen consists of multiple fragments of hemorrhagic soft tissue that in aggregate measure 3 x 0.2 x 0.1 cm. A piece of calloway-pink congested polyp is also noted measuring 1 x 1 x 0.2 cm. The entire specimen is submitted in one cassette. / SJ:rg 04/28/20 TC:1 CPT: 52032, 82485 x2, 35736
--- NOTE | 2020-04-27 10:49 | OP.PCM_ITS ---
Problem List (1) Ovarian cyst Status: Acute Comment: ultrasound ordered, ca125 and cea, plan laparosocpic B SO. right ovary 5 cm simple cyst. (2) Endometrial thickening on ultrasound Status: Acute Comment: 7 mm. 2014 menopause plan hysteroscopy D&C Report of Operation Date of Procedure: 04/27/20 Pre-Operative Diagnosis: thickened endometrium, 5 cm ovarian cyst Post-Operative Diagnosis: same Surgery/Procedure Performed:: Laparoscopic BSO D&C hysteroscopy cytologic washings Description of Surgical Findings:: endometrial polyp, left paratubal cyst, right enlarged cystic ovary outsole cutter machine: Sarah Kelly Type of Anesthesia:: General Special Medications: none Specimen's removed: tubes ovaries emc pelvic washings Drains: none Estimated Blood Loss (mL): 25 Fluids Replaced: crystalloid Description of Procedure: Patient was taken in the operating room and was placed under general anesthesia was prepped and draped in normal sterile fashion in the dorsal lithotomy position. Bladder was drained of clear urine and SCDs were on preoperatively. Uterus was sounded and a uterine manipulator was placed after dilating. Attention was then paid to the abdominal portion of the procedure and the umbilicus was elevated with towel clamps and injected with Marcaine and after a 12 mm incision was made and the Veress needle was entered into the abdomen confirmed to be intra-abdominal with a low opening pressure of less than 5 mmHg. Abdomen was insufflated with CO2 gas and a 12 mm optical trocar was placed under direct visualization. A right and left lower quadrant 5 mm ports were placed under direct visualization. left mild sigmoid to pelvic side wall adhesions were noted. Pelvic washings were taken of the uterus ovaries and cul-de-sac . uterus was well visualized and bilateral fallopian tubes and ovaries were identified and the infundibulopelvic ligaments were transected acr oss using the LigaSure device followed by transecting across the mesosalpinx to the attachment to the uterine corpus bilaterally the tubes and ovaries were removed without complication. Excellent hemostasis was noted. Fallopian tubes were removed through the lower port sites without complication. Liver and upper abdomen were visualized notably within normal limits and no other gross abnormalities were seen in the abdomen. All instruments removed from the abdomen after gas was desufflated. Port sites were closed with 3-0 Monocryl Steri's and op sites were applied. A weighted speculum was placed in the vagina and the anterior lip of the cervix was grasped with a single-tooth tenaculum. A paracervical block was placed with 1% lidocaine. Cervix was progressively dilated to allow passage of a 5 mm hysteroscope. The lining was fully visualized and noted to have a large endometrial polyp present. Uterine sounded to 7 cm. Curettage was performed and polyp removed , sent to pathology. All instruments were removed from the vagina and excellent hemostasis was noted. Patient was awoken and taken to recovery in stable condition. Grafts/Implants Used: none - Complications none Multi Select Codes - Urinary/Genital Urinary/Genital CPT Codes: 67787 Hysteroscopy,EMC, Polypectomy, 48425 Laproscopic BS/O
--- NOTE | 2020-04-27 10:54 | PCM.DC.D&C ---
Discharge Diet: No Restrictions Discharge Activity: Return to Normal Activity, May Shower, May Take a Tub Bath Allergies/Adverse Reactions: Allergies tetanus and diphtheria toxoids Adverse Reaction (Verified 04/16/20 12:12) NEEDS FOLLOW-UP Medications to take at Discharge cholecalciferol (vitamin D3) 50 mcg (2,000 unit) capsule 50 mcg PO DAILY 04/13/20 cyanocobalamin (vitamin B-12) 1,000 mcg capsule 1,000 mcg PO DAILY 04/13/20 escitalopram oxalate 10 mg tablet 10 mg PO DAILY 04/13/20 fenofibrate 150 mg capsule 145 mg PO DAILY 04/13/20 loratadine 10 mg tablet 10 mg PO PRN PRN 04/13/20 Fluticasone 0.05% [Flonase Nasal [place]] 2 spray NASAL DAILY 04/16/20 Naproxen [Naprosyn] 250 - 500 mg PO Q8H PRN PRN #30 tab 04/27/20 Oxycodone HCl/Acetaminophen [Percocet 5-325] 1 - 2 tab PO Q6H PRN PRN 7 Days #15 tab 04/27/20 The following prescriptions were given: Naproxen [Naprosyn] 250 - 500 mg PO Q8H PRN PRN #30 tab PRN Reason: MILD PAIN Transmission Status: Received by [facility] Oxycodone HCl/Acetaminophen [Percocet 5-325] 1 - 2 tab PO Q6H PRN PRN 7 Days #15 tab PRN Reason: Pain Transmission Status: Received by [facility] Orders to be completed after discharge: Type & Screen - PAT ONLY Time Frame: 04/27/20, Facility: [facility], Location: Laboratory Primary Care Physician: Jayant Nieto MD [Primary Care Provider] - Test Results: Test results from this visit will be discussed in further detail at your follow-up appointment, if applicable. Please Follow Up With: Funmi Zimmerman MD - [phone]
[2020-04-27] MEDS: Bupivacaine 0.25% 30 ML Vial (11:29)
[2020-05-04 07:26] LABS: Cytology, Body Fluid / CSF SEE PATHOLOGY REPORT
[2020-05-04 07:27] LABS: Cytology, Body Fluid / CSF SEE PATHOLOGY REPORT
== END 2020-04-27 13:50 | disposition home or self-care (01) ==
LOC: SDC 08:02 → AC 08:02
PROVIDERS: Anesthesiology; PCP Family Medicine; Referring Provider Obstetrics & Gynecology; Visit Provider Obstetrics & Gynecology
PROC: (CPT 58558; principal; 2020-04-27 09:15)
DX: N83.201 Unspecified ovarian cyst, right side (principal); Z11.59 Encounter for screening for other viral diseases; R93.89 Abnormal findings on diagnostic imaging of other specified body structures; E78.5 Hyperlipidemia, unspecified; G47.30 Sleep apnea, unspecified; F41.8 Other specified anxiety disorders; Z79.899 Other long term (current) drug therapy
CPT/HCPCS: 00840; 58558; 58661; 80048; 85025; 86850; 86900; 86901; 87635; 88108; 88305; 88307; 88313; 93005; C9803; J7120; J2405; U0003

== ENCOUNTER → 2020-06-25 08:10 | Outpatient (CLI) | payer OTHER, SELFPAY ==
[2020-05-19 11:44] VITALS: BMI 30.8
[2020-06-25 10:08] LABS: AST(SGOT) 20 U/L (15-37); Alanine Aminotransfer ALT/SGPT 41 U/L (13-56); Alkaline Phosphatase 58 U/L (45-117); Bilirubin, Direct 0.16 mg/dL (0.00-0.30); Cholesterol 160 mg/dL (200); Globulin 3.3 g/dL (2.2-4.2); High Density Lipoprotein 38 mg/dL; Protein, Total 7.3 g/dL (6.4-8.2); Triglycerides 134 mg/dL; Very Low Density Lipoprotein 27 mg/dL (5-40)
== END ==
PROVIDERS: PCP Family Medicine; Referring Provider Family Medicine; Visit Provider Family Medicine
DX: E78.1 Pure hyperglyceridemia (principal)
CPT/HCPCS: 36415; 80061; 80076

== ENCOUNTER → 2020-07-14 08:45 | Outpatient (CLI) | payer OTHER, SELFPAY ==
[2020-05-19 11:44] VITALS: BMI 30.8
--- NOTE | 2020-07-14 08:47 | BI_ITS ---
MAMMOGRAPHY - BILATERAL SCREENING REASON FOR EXAM: Female, 54 years old. Routine annual screening examination. PERTINENT HISTORY: Sister with breast cancer. History of prior bilateral breast reduction surgery. TECHNIQUE: Digital bilateral breast lisa (3D mammographic acquisition) in the CC and MLO projections. 2-D mediolateral oblique (MLO) and craniocaudad (CC) views of both breasts were obtained. CAD: Full Field Digital Mammography with Computer Added Detection was performed. COMPARISON: Comparison is made with prior study dated 05/14/2019 and 04/25/2018. FINDINGS: Breast Composition: The breasts are heterogeneously dense, which may obscure small masses. There are no dominant masses or suspicious calcifications. Stable asymmetry of breast tissue where more breast tissue is seen in the axillary region of the right breast as compared to the left side. Stable fat-containing bilateral axillary lymph nodes. No other significant abnormalities are identified. There has been no significant change since the prior study. BI/SCREEN MAMM (CAD) W/LISA BILAT IMPRESSION: Stable bilateral screening mammogram. Yearly follow-up mammogram recommended. (A) ASSESSMENT CATEGORY: BIRADS Category 2: Benign. A letter regarding these results will be sent to the patient by the facility within 30 days. Approximately 10% of breast cancers are not detected by mammography. A normal mammogram should not delay biopsy of a clinically suspicious abnormality. [id number] Electronically Signed: Kevan Lopez, at 11:01 EST , Service support ,
== END ==
PROVIDERS: PCP Family Medicine; Referring Provider Family Medicine; Visit Provider Family Medicine
DX: Z12.31 Encounter for screening mammogram for malignant neoplasm of breast (principal)
CPT/HCPCS: 77063; 77067

== ENCOUNTER 2021-01-05 20:38 | Emergency (ER) | payer OTHER, SELFPAY ==
[2020-05-19 11:44] VITALS: BMI 30.8
[2021-01-05 20:39] VITALS: BP 128/77; PULSE 80; RESP 16; TEMP 36.4; O2SAT 98; BMI 29.9
--- NOTE | 2021-01-05 20:54 | ED.VIS.LOWEX ---
HPI History of Present Illness Chief Complaint: Lower Extremity Injury Detail of Chief Complaint: Injury left ankle Informant: patient Onset/Context/Timing Onset: Today Narrative Narrative: Patient states that she was walking her dog when she stepped on room blood and even manhole which caused her to roll her ankle. Patient states she did not fall on top of her large dog. She denies any other injuries. She is able to bear some weight but having pain with ambulation. PFSH PFS Medical History Anxiety with depression Fatigue Hyperlipidemia Sleep apnea Home Medications cholecalciferol (vitamin D3) 50 mcg (2,000 unit) capsule 50 mcg PO DAILY 04/13/20 [History Last Taken Unknown] cyanocobalamin (vitamin B-12) 1,000 mcg capsule 1,000 mcg PO DAILY 04/13/20 [History Last Taken Unknown] fenofibrate 150 mg capsule 145 mg PO DAILY 04/13/20 [History Last Taken Unknown] loratadine 10 mg tablet 10 mg PO PRN PRN 04/13/20 [History Last Taken Unknown] fluticasone propionate 2 spray NASAL DAILY 04/16/20 [History Last Taken Unknown] levomefolate calcium 7.5 mg PO DAILY 01/05/21 [History Last Taken Unknown] Allergy/AdvReac Type Severity Reaction Status Date / Time tetanus and diphtheria AdvReac NEEDS Verified 01/05/21 20:55 toxoids FOLLOW-UP Family History Sister Breast cancer Mother Cancer hodgkins lymphoma Surgical History bladder sling Endometrial polyp History of bilateral salpingo-oophorectomy (BSO) History of foot surgery History of tonsillectomy Status post breast reduction Status post hysteroscopic polypectomy Social History Smoking Status: Never smoker alcohol intake: current details: social substance use type: does not use caffeine: Yes what type of physical activity do you participate in: walking frequency: 3-4 times per week seatbelt use: always do you feel safe at home: Yes 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 Constitutional Constitutional ED: Reports systems reviewed and no addt'l complaints, except as documented; Denies body ache(s), change in weight or chills Eyes Eyes: Denies acute decrease in peripheral vision, change in vision, double vision or loss of vision ENT ENT ED: Reports none; Denies ear pain, lip swelling, loss taste/smell, neck pain, otalgia or sore throat Cardiovascular Cardiovascular: Reports none; Denies abdominal pain, chest pain with activity, leg edema, lightheadedness, palpitations, rapid heart rate or syncope Respiratory/Chest Respiratory/Chest: Reports none; Denies change in mental status, dry cough, dyspnea, hemoptysis, shortness of breath at rest or shortness of breath with exertion Gastrointestinal Gastrointestinal: Reports none; Denies abdominal pain, change in stool character, diarrhea, hematemesis, hematochezia, melena, rectal bleeding or vomiting Genitourinary Genitourinary ED: Reports none; Denies abdominal discomfort, anuria, dysuria, genital pain or polyuria Musculoskeletal Musculoskeletal: Reports none and other Details: Left ankle pain ; Denies arthralgias, back pain, difficulty walking, extremity pain, muscle weakness or myalgias Integumentary Reports none; Denies abscess or rash Neurologic Neurologic: Reports none; Denies abnormal gait, confusion, focal weakness, frequent falls, headache(s), loss of vision, numbness, paresthesias, radicular pain, vertigo or weakness Psychiatric Psychiatric: Reports systems reviewed and no addt'l complaints, except as documented and none; Denies behavioral changes, confusion, difficulty concentrating, hallucinations, suicidal ideation, tactile hallucinations or visual hallucinations Endocrine Endocrinology: Denies none, cold intolerance, excessive sweating, fatigue or heat intolerance Hematologic/Lymphatic Hematologic/Lymphatic: Reports none; Denies anemia, easy bleeding or easy bruising Allergic/Immunologic Allergic/Immunologic ED: Denies as per HPI, none, lip swelling, mouth swelling, throat swelling, tongue swelling or hives EXAM Physical Exam Const Vital Signs: 01/05/21 20:39 Temperature 97.6 F L Temperature Source Temporal Pulse Rate 80 Respiratory Rate 16 Blood Pressure 128/77 H Blood Pressure Mean 94 Pulse Ox 98 Oxygen Delivery Method Room Air Positive well nourished and well developed General Appearance ED: well developed and NAD HEENT Reports TM's clear and moist mucous membranes normocephalic and atraumatic; Negative for trauma or tenderness Tympanic Membrane ED: Yes TM's clear Eyes PERRL and EOMs intact bilaterally General Eye ED: Negative for pale conjunctiva or scleral icterus Neck no lymphadenopathy, supple and no JVD General: Negative for tenderness Chest Wall inspection of chest normal and palpation of chest normal Chest: Negative for tenderness Resp normal respiratory effort and clear to auscultation bilaterally Effort and Inspection: Negative for respiratory distress or pain with movement Auscultation: Negative for rhonchi, wheezes or diminished lung sounds Cardio regular rate, regular rhythm, S1 normal heart sound, S2 normal heart sound and no murmurs Peripheral Pulses: pulses 2+ throughout GI normal to inspection, nondistended, normoactive bowel sounds, soft to palpation, non-tender, non-distended and no masses Back/Spine no CVA tenderness and no thoracic nor lumbar tenderness Extremity Extremity Narrative: Ankle-patient has some mild soft tissue swelling noted over the lateral malleolus. No pain at the proximal fibular head. No pain at the base of the fifth metatarsal. Neurovascular intact distally. General Extremety ED: Negative for edema General Extremity: Negative for edema Neuro oriented x3, CN's II-XII intact bilaterally, no sensory deficits noted and gait normal Sensorium / Orientation: awake, alert, oriented to person, oriented to place and oriented to time Motor Exam: strength 5/5 throughout and strength abnormal Psych mental status grossly normal Skin no rashes or lesions noted and no wounds MDM MDM MDM Narrative Medical decision making narrative: Patient splinted. Patient has her own crutches. She is advised to ice and elevate extremity. Patient follow-up with her primary care physician in 1 week. Radiography X-Ray: - (Ankle 3 views) Diagnostic Testing: Three-view x-rays of left ankle obtained interpreted by myself as small avulsion fracture at the tip of the distal fibula without any other significant fractures noted. Patient report from radiology pending. Treatment and Re-Evaluation Comments:: Air splint Discharge Plan Triage Chief Complaint: Lower Extremity Injury ED Provider: Julia Jeffers Dx/Rx/DC Orders Instructions: ED Ankle Fracture, Distal Fibula, ED Ankle Sprain (Adult) Prescriptions: No Action fenofibrate 150 mg capsule 145 mg PO DAILY RF: 0 cholecalciferol (vitamin D3) 50 mcg (2,000 unit) capsule 50 mcg PO DAILY RF: 0 cyanocobalamin (vitamin B-12) 1,000 mcg capsule 1,000 mcg PO DAILY RF: 0 loratadine [Claritin] 10 mg tablet 10 mg PO PRN PRN (Reason: Allergies) RF: 0 fluticasone propionate 1 SPRAY spray,suspension 2 spray NASAL DAILY RF: 0 levomefolate calcium 7.5 mg tablet 7.5 mg PO DAILY RF: 0 Primary Care Provider: Jayant Nieto Referrals: Jayant Nieto MD [Primary Care Provider] - 1 Week Disposition Disposition: Home, self care
--- NOTE | 2021-01-05 20:58 | RAD_ITS ---
STUDY: X-RAY - LEFT ANKLE REASON FOR EXAM: Female, 55 years old. Injury. TECHNIQUE: 3 view(s) of the ankle. COMPARISON: None. FINDINGS: Normal visualized distal tibia and fibula. Normal medial and lateral malleoli. Normal tibiotalar articulation and ankle mortise. Normal visualized talus. There is a small enthesophyte at the insertion of the Achilles tendon on the otherwise normal calcaneus. The visualized subtalar, talonavicular, calcaneocuboid and tarsal articulations are normal. Question minimal lateral soft tissue swelling suggesting sprain. RAD/Ankle min 3 Views IMPRESSION: Mild soft tissue swelling without visualized fracture or dislocation. Electronically Signed: Costa Turner DO at 21:50 EDT Tel [phone], Service support ,
[2021-01-05] MEDS: Ibuprofen 600 MG Tablet PO (21:03)
== END 2021-01-05 21:44 | disposition home or self-care (01) ==
PROVIDERS: Emergency Provider Emergency Medicine; PCP Family Medicine
DX: S99.912A Unspecified injury of left ankle, initial encounter (principal); F32.9 Major depressive disorder, single episode, unspecified; Y93.K1 Activity, walking an animal; Z79.899 Other long term (current) drug therapy
CPT/HCPCS: 73610; 99283

== ENCOUNTER → 2021-03-09 17:38 | Outpatient (CLI) | payer OTHER, SELFPAY | PROVIDERS: Visit Provider Family Medicine | DX: N39.0 Urinary tract infection, site not specified (principal) | CPT/HCPCS: 87086; 87088; 87186 ==

== ENCOUNTER → 2021-05-16 10:02 | Outpatient (CLI) | payer OTHER, SELFPAY ==
[2021-05-16 12:17] LABS: Absolute Lymphocyte Count 1.45 X10^3/uL (0.83-4.51); Absolute Neutrophil Count 1.8 X10^3/uL (2.0-7.7); Basophil# 0.04 X10^3/uL; Basophil% 1.1 % (0-1); Eosinophil# 0.05 X10^3/uL; Eosinophils% 1.4 % (0-5); Hemoglobin 13.9 g/dL (12.0-15.0); Lymphocyte # 1.45 X10^3/ul (0.83-4.51); Lymphocyte % 39.8 % (19-41); Mean Corp Hgb Conc 33.1 g/dL (32-36); Mean Corpuscular Hgb 30.7 pg (27.0-32.0); Mean Corpuscular Volume 92.7 fL (81-99); Mean Platelet Vol. 9.8 fl (6.2-12.0); Monocyte# 0.25 X10^3/uL; Monocyte% 6.9 % (0-10); NRBC Flagged by Analyzer 0 % (0-5); Neutrophil # 1.82 X10^3/uL (2.7-7.7); Platelet Count 247 K/mm3 (150-450); RBC Distribution Width CV 12.1 % (11.6-14.6); RBC Distribution Width SD 41.8 fl (35.1-43.9); Red Blood Count 4.53 M/mm3 (4.2-5.4); White Blood Count 3.6 K/mm3 (4.4-11.0)
[2021-05-16 12:30] LABS: Vitamin B12 469 pg/mL (211-911)
[2021-05-16 13:16] LABS: AST(SGOT) 18 U/L (15-37); Alanine Aminotransfer ALT/SGPT 42 U/L (13-56); Albumin, Serum 3.7 g/dL (3.2-5.0); Alkaline Phosphatase 53 U/L (45-117); Anion Gap 5 (5-15); BUN 16 mg/dL (7-18); BUN/Creat Ratio 21.6 RATIO (10-20); Calcium,Total 9.2 mg/dL (8.5-10.1); Chloride 108 mmol/L (98-107); Creatinine, Serum 0.74 mg/dL (0.55-1.02); EST Glomerular Filtration Rate 86 mL/min (>60); Est Glom Filt Rate - Afr Amer 104 mL/min (>60); Globulin 3.8 g/dL (2.2-4.2); Glucose 112 mg/dL (74-106); Potassium 3.6 mmol/L (3.5-5.1); Protein, Total 7.5 g/dL (6.4-8.2); Sodium Level 142 mmol/L (136-145); Thyroid Stim Hormone (TSH) 1.87 uIU/mL (0.358-3.74)
== END ==
PROVIDERS: PCP Family Medicine; Referring Provider Family Medicine; Visit Provider Family Medicine
DX: F32.9 Major depressive disorder, single episode, unspecified (principal); E55.9 Vitamin D deficiency, unspecified; E53.8 Deficiency of other specified B group vitamins
CPT/HCPCS: 36415; 80053; 82306; 82607; 82746; 84443; 85025

== ENCOUNTER → 2021-05-23 07:16 | Outpatient (CLI) | payer OTHER, SELFPAY ==
--- NOTE | 2021-05-23 07:30 | MRI_ITS ---
STUDY: MRI LEFT ANKLE WITHOUT CONTRAST REASON FOR EXAM: Lateral left ankle pain after left ankle injury 01/05/2021 with lateral malleolar avulsion fracture. TECHNIQUE: Standardized fat and water weighted pulse sequences were obtained in all 3 orthogonal planes. COMPARISON: Radiographs 01/05/2021. FINDINGS: Normal subcutis adipose space. Normal posterior tibialis tendon. Normal flexor digitorum longus tendon. Normal flexor hallucis longus tendon. Normal peroneus longus and brevis tendons. Normal tibialis anterior tendon. Normal extensor hallucis longus tendon. Normal extensor digitorum longus tendons. Normal Achilles tendon and teno-osseous insertion. Normal plantar fascia. Normal plantar calcaneal tubercles. Normal intrinsic muscles of the rearfoot. Normal distal tibiofibular syndesmotic ligamentous complex. There is a partial tear of the anterior talofibular ligament (inversion recovery axial oblique series 11 images 12, 13). There is a small nondisplaced avulsion fracture of the distal lateral malleolus (T1 sagittal image 18) without residual bone edema. Normal calcaneofibular and posterior talofibular ligaments. Normal subtalar ligaments and sinus tarsi. Normal deltoid ligamentous complexes. Normal plantar calcaneonavicular (spring) ligament. Normal tibiotalar articulation. Normal talar dome. Normal subtalar articulations. Normal talonavicular articulation. Normal calcaneocuboid articulation. Normal navicular-cuneiform articulations. MRI/Lower Ext Joint Only (Routine) IMPRESSION: Partial tear of the anterior talofibular ligament. Small nondisplaced chronic avulsion fracture of the distal lateral malleolus. Electronically Signed: Gunner Valle MD at 9:20 EDT Tel , Service support ,
== END ==
PROVIDERS: PCP Family Medicine; Referring Provider Podiatrist; Visit Provider Podiatrist
DX: S93.492A Sprain of other ligament of left ankle, initial encounter (principal); S82.832A Other fracture of upper and lower end of left fibula, initial encounter for closed fracture; M25.572 Pain in left ankle and joints of left foot; M94.9 Disorder of cartilage, unspecified; M72.2 Plantar fascial fibromatosis
CPT/HCPCS: 73721

== ENCOUNTER → 2021-06-02 14:51 | Outpatient (CLI) | payer OTHER, SELFPAY | PROVIDERS: PCP Family Medicine; Referring Provider Family Medicine; Visit Provider Family Medicine | DX: N30.00 Acute cystitis without hematuria (principal) | CPT/HCPCS: 87086; 87088; 87186 ==

== ENCOUNTER 2021-09-06 11:49 | Outpatient (CLI) | payer OTHER, SELFPAY ==
[2021-09-06 11:59] LABS: Bacteria 0 SEEN /hpf (None Seen); Mucous, Urine 0 SEEN /hpf (<or=2+); Red Blood Cells-Urine 0 SEEN /hpf (0-5); Squamous Epithelial Cells - UA 0 SEEN /hpf (5-10); White Blood Cells 0 SEEN /hpf (0-5)
[2021-09-06 15:35] LABS: Color, Urine Yellow (Yellow); Glucose, Dipstick Normal (Normal); Ketone-Dipstick Negative (Negative); Leukocyte Esterase-Dipstick Negative /ul (Negative); Nitrite-Dipstick Negative (Negative); Occult Blood-Urine Negative /ul (Negative); Protein-Dipstick Negative (Negative); Urine Bilirubin Dipstick Negative (Negative); Urine Clarity Clear (Clear); Urine Urobilinogen Normal (Normal)
== END 2021-09-06 23:59 | disposition short-term general hospital (02) ==
LOC: MTLAB 11:51
PROVIDERS: PCP Family Medicine; Referring Provider Family Medicine; Visit Provider Family Medicine
DX: N30.00 Acute cystitis without hematuria (principal)
CPT/HCPCS: 81001; 87086; 87088

== ENCOUNTER 2021-10-18 12:47 | Outpatient (CLI) | payer OTHER, SELFPAY ==
--- NOTE | 2021-10-18 12:49 | BI_ITS ---
MAMMOGRAPHY - BILATERAL SCREENING REASON FOR EXAM: Female, 56 years old. Routine annual screening examination. PERTINENT HISTORY: Sister with breast cancer. History of prior bilateral breast reduction surgery. TECHNIQUE: Digital bilateral breast lisa (3D mammographic acquisition) in the CC and MLO projections. 2-D mediolateral oblique (MLO) and craniocaudad (CC) views of both breasts were obtained. CAD: Full Field Digital Mammography with Computer Added Detection was performed. COMPARISON: Comparison is made with prior study dated 07/14/2020 and 05/14/2019. FINDINGS: Breast Composition: The breasts are heterogeneously dense, which may obscure small masses. There are no dominant masses or suspicious calcifications. Stable asymmetry of breast tissue where more breast tissue is seen in the axillary region of the right breast as compared to the left side. Stable benign-appearing bilateral axillary lymph nodes. No other significant abnormalities are identified. There has been no significant change since the prior study. BI/SCRN MAMM (CAD)W/LISA BILAT IMPRESSION: Stable bilateral screening mammogram. Yearly follow-up mammogram recommended. (A) ASSESSMENT CATEGORY: BIRADS Category 2: Benign. A letter regarding these results will be sent to the patient by the facility within 30 days. Approximately 10% of breast cancers are not detected by mammography. A normal mammogram should not delay biopsy of a clinically suspicious abnormality. [id number] Electronically Signed: Kevan Lopez MD at 13:57 EST ,
== END 2021-10-18 23:59 | disposition home or self-care (01) ==
LOC: OPBI 12:48
PROVIDERS: PCP Family Medicine; Visit Provider Obstetrics & Gynecology
DX: Z12.31 Encounter for screening mammogram for malignant neoplasm of breast (principal)
CPT/HCPCS: 77063; 77067

== ENCOUNTER 2021-10-20 07:47 | Outpatient (CLI) | payer OTHER, SELFPAY ==
[2021-10-27 12:37] LABS: HPV APTIMA, High Risk Negative (Negative)
== END 2021-10-20 23:59 | disposition home or self-care (01) ==
LOC: LABSPEC 10-21 07:48
PROVIDERS: PCP Family Medicine; Visit Provider Obstetrics & Gynecology
DX: Z12.4 Encounter for screening for malignant neoplasm of cervix (principal)
CPT/HCPCS: 87624; 88175; G0145

== ENCOUNTER 2021-10-21 16:33 | Outpatient (CLI) | payer OTHER, SELFPAY ==
[2021-10-21 17:36] LABS: Absolute Lymphocyte Count 2.07 X10^3/uL (0.83-4.51); Absolute Neutrophil Count 2.8 X10^3/uL (2.0-7.7); Basophil# 0.03 X10^3/uL; Basophil% 0.6 % (0-1); Eosinophil# 0.06 X10^3/uL; Eosinophils% 1.1 % (0-5); Hematocrit 40.9 % (37-47); Lymphocyte # 2.07 X10^3/ul (0.83-4.51); Lymphocyte % 38.8 % (19-41); Mean Corp Hgb Conc 34.2 g/dL (32-36); Mean Corpuscular Hgb 31.6 pg (27.0-32.0); Mean Corpuscular Volume 92.3 fL (81-99); Mean Platelet Vol. 9.9 fl (6.2-12.0); Monocyte# 0.35 X10^3/uL; Monocyte% 6.6 % (0-10); NRBC Flagged by Analyzer 0 % (0-5); Neutrophil % 52.5 % (47-70); Platelet Count 266 K/mm3 (150-450); RBC Distribution Width SD 41.2 fl (35.1-43.9); Red Blood Count 4.43 M/mm3 (4.2-5.4); White Blood Count 5.3 K/mm3 (4.4-11.0)
== END 2021-10-21 23:59 | disposition home or self-care (01) ==
LOC: MTLAB 16:34
PROVIDERS: PCP Family Medicine; Referring Provider Obstetrics & Gynecology; Visit Provider Obstetrics & Gynecology
DX: R93.89 Abnormal findings on diagnostic imaging of other specified body structures (principal)
CPT/HCPCS: 36415; 85025

== ENCOUNTER 2021-10-25 11:12 | Outpatient (CLI) | payer OTHER, SELFPAY ==
--- NOTE | 2021-10-25 11:15 | US_ITS ---
INDICATION: thickened endometrium EXAMINATION: Ultrasound US Pelvis Non OB Complete With Transvaginal Imaging TECHNIQUE: Transabdominal and transvaginal pelvic ultrasound was performed. Grayscale, spectral waveform, and color flow Doppler evaluation of the adnexa. COMPARISON: Ultrasound from 04/21/2020 FINDINGS: UTERUS: Anteverted. The uterus measures 7.2 x 5.3 x 3.3 cm. The uterus is heterogeneous and to assess. There is a 1.8 cm lesion, likely a fibroid. The endometrial stripe measures 5 mm in AP diameter which is within normal limits. RIGHT OVARY: Surgically absent. No adnexal masses. LEFT OVARY: Surgically absent. No adnexal masses. FREE FLUID: None. US/Transvaginal Non- IMPRESSION: As above. Electronically Signed: Bay Lopez, at 16:48 EDT ,
--- NOTE | 2021-10-25 11:15 | US_ITS ---
INDICATION: thickened endometrium EXAMINATION: Ultrasound US Pelvis Non OB Complete With Transvaginal Imaging TECHNIQUE: Transabdominal and transvaginal pelvic ultrasound was performed. Grayscale, spectral waveform, and color flow Doppler evaluation of the adnexa. COMPARISON: Ultrasound from 04/21/2020 FINDINGS: UTERUS: Anteverted. The uterus measures 7.2 x 5.3 x 3.3 cm. The uterus is heterogeneous and to assess. There is a 1.8 cm lesion, likely a fibroid. The endometrial stripe measures 5 mm in AP diameter which is within normal limits. RIGHT OVARY: Surgically absent. No adnexal masses. LEFT OVARY: Surgically absent. No adnexal masses. FREE FLUID: None. US/Pelvic (Non ) IMPRESSION: As above. Electronically Signed: Bay Lopez, at 16:48 EDT ,
== END 2021-10-25 23:59 | disposition home or self-care (01) ==
LOC: US 11:14
PROVIDERS: PCP Family Medicine; Referring Provider Obstetrics & Gynecology; Visit Provider Obstetrics & Gynecology
DX: R93.89 Abnormal findings on diagnostic imaging of other specified body structures (principal)
CPT/HCPCS: 76830; 76856

== ENCOUNTER 2021-11-08 11:23 | Day surgery (SDC) | payer OTHER, SELFPAY ==
[2021-11-08] VITALS (9 sets, daily range): BP systolic 103–129; BP diastolic 61–86; PULSE 62–79; RESP 16–18; TEMP 36.4–37.1; O2SAT 96–99; BMI 29.5
--- NOTE | 2021-11-08 07:19 | HP.PCM_ITS ---
HPI - General HPI Narrative NIKHIL ROMAN, is a 56 F who presents for preop due to endocervical polyp, needing a d and c hysteroscopy polypectomy. this was discovered on an annual exam, she has had polyps in the past. [facility] Medical History (Updated 11/04/21 @ 09:10 by Dee Serna) Anxiety Anxiety with depression Back pain BiPAP (biphasic positive airway pressure) dependence Depression Fatigue History of echocardiogram History of irregular heartbeat History of pain when walking Hyperlipidemia Injury of back Injury of head and neck Post-menopausal Sleep apnea Wears glasses Wears hearing aid Home Medications cholecalciferol (vitamin D3) 50 mcg (2,000 unit) capsule 50 mcg PO DAILY 04/13/20 [History Last Taken Unknown] cyanocobalamin (vitamin B-12) 1,000 mcg capsule 1,000 mcg PO DAILY 04/13/20 [History Last Taken Unknown] fenofibrate 150 mg capsule 145 mg PO DAILY 04/13/20 [History Last Taken Unknown] loratadine 10 mg tablet 10 mg PO PRN PRN 04/13/20 [History Last Taken Unknown] fluticasone propionate 2 spray NASAL DAILY 04/16/20 [History Last Taken Unknown] levomefolate calcium 7.5 mg PO DAILY 01/05/21 [History Last Taken Unknown] escitalopram oxalate 10 mg tablet 10 mg PO DAILY 10/20/21 [History Last Taken Unknown] Allergy/AdvReac Type Severity Reaction Status Date / Time tetanus and diphtheria AdvReac NEEDS Verified 11/04/21 09:00 toxoids FOLLOW-UP Family History Sister Breast cancer Mother Cancer hodgkins lymphoma Surgical History (Updated 11/04/21 @ 09:10 by Dee Serna) bladder sling Endometrial polyp History of bilateral salpingo-oophorectomy (BSO) History of foot surgery History of tonsillectomy Hx of hand surgery Hx of vein stripping Status post breast reduction Status post hysteroscopic polypectomy Social History Smoking Status: Never smoker alcohol intake: current details: social substance use type: does not use caffeine: Yes what type of physical activity do you participate in: walking frequency: 3-4 times per week seatbelt use: always do you feel safe at home: Yes 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[employer] Review of Systems ROS Unobtainable: due to mental status and other Constitutional Constitutional: Reports systems reviewed and no addt'l complaints, except as documented; Denies as per HPI, change in weight, fatigue, fever(s), malaise, weakness or other Eyes Eyes: Reports systems reviewed and no addt'l complaints, except as documented; Denies as per HPI, change in vision or other ENT HEENT: Reports systems reviewed and no addt'l complaints, except as documented Respiratory/Chest Respiratory/Chest: Reports systems reviewed and no addt'l complaints, except as documented Gastrointestinal Gastrointestinal: Reports systems reviewed and no addt'l complaints, except as documented and as per HPI Genitourinary Genitourinary: Reports as per HPI Musculoskeletal Musculoskeletal: Reports systems reviewed and no addt'l complaints, except as documented Neurologic Neurologic: Reports systems reviewed and no addt'l complaints, except as documented Psychiatric Psychiatric: Reports systems reviewed and no addt'l complaints, except as documented Endocrine Endocrinology: Reports systems reviewed and no addt'l complaints, except as documented Hematologic/Lymphatic Hematologic/Lymphatic: Reports systems reviewed and no addt'l complaints, except as documented Physical Exam Const alert, oriented x3 and no apparent distress HEENT normocephalic Head and Scalp: atraumatic Eyes EOMs intact bilaterally and conjunctivae normal Neck full ROM, no lymphadenopathy, supple and thyroid normal General: trachea midline Lymph Lymphatic: no lymphadenopathy noted Resp normal respiratory effort, no retractions, no use of accessory muscles and clear to auscultation bilaterally Cardio regular rhythm GI normal to inspection, nondistended, normoactive bowel sounds, soft to palpation, non-distended and no masses Inspection: Negative for abdominal distention Back/Spine no CVA tenderness Extremity normal to inspection Skin no rashes or lesions noted Neuro moves all extremities and deep tendon reflexes 2+ bilaterally Psych mental status grossly normal Assessment & Plan Assessment/Plan (1) Cervical polyp: PLAN: After discussing the patient's diagnosis and treatment plan options, patient wishes to proceed with surgical management. I have discussed with the patient the risks, benefits, and alternatives of the procedure which include but are not limited to risks of anesthesia, bleeding, infection, possible damage to bowel, bladder, or surrounding vasculature which could lead to additional surgery to evaluate any complications. Patient agrees to procedure and wishes to proceed. ACOG/uptodate references given for additional information regarding procedure.
--- NOTE | 2021-11-08 11:44 | EKG12_ITS ---
Test Reason : PRE OP Blood Pressure : / mmHG Vent. Rate : 070 BPM Atrial Rate : 070 BPM P-R Int : 180 ms QRS Dur : 084 ms QT Int : 402 ms P-R-T Axes : 039 027 020 degrees QTc Int : 434 ms Normal sinus rhythm T wave abnormality, consider anterior ischemia Abnormal ECG When compared with ECG of 20-APR-2020 12:17, No significant change was found Confirmed by KEMAL US, EDGARD ([id number]), sound editor PIPO RODRÍGUEZ ([id number]) on 11/10/2021 7:47:59 AM Referred By: Funmi Zimmermna Confirmed By:EDGARD SOMMER MD
[2021-11-08 12:03] LABS: Absolute Lymphocyte Count 1.61 X10^3/uL (0.83-4.51); Absolute Neutrophil Count 1.9 X10^3/uL (2.0-7.7); Basophil# 0.02 X10^3/uL; Basophil% 0.5 % (0-1); Eosinophil# 0.06 X10^3/uL; Eosinophils% 1.5 % (0-5); Hematocrit 45.3 % (37-47); Hemoglobin 15.5 g/dL (12.0-15.0); Lymphocyte # 1.61 X10^3/ul (0.83-4.51); Lymphocyte % 41.3 % (19-41); Mean Corp Hgb Conc 34.2 g/dL (32-36); Mean Corpuscular Hgb 31.5 pg (27.0-32.0); Mean Corpuscular Volume 92.1 fL (81-99); Mean Platelet Vol. 9.3 fl (6.2-12.0); Monocyte# 0.24 X10^3/uL; Monocyte% 6.2 % (0-10); NRBC Flagged by Analyzer 0 % (0-5); Neutrophil # 1.94 X10^3/uL (2.7-7.7); Neutrophil % 49.7 % (47-70); Platelet Count 253 K/mm3 (150-450); RBC Distribution Width CV 12.1 % (11.6-14.6); Red Blood Count 4.92 M/mm3 (4.2-5.4); White Blood Count 3.9 K/mm3 (4.4-11.0)
[2021-11-08] MEDS: Lactated Ringers 1,000 ML 125 ML IV (12:03)
[2021-11-08 12:19] LABS: ALB/GLOB Ratio 1.1 RATIO (0.9-2.4); AST(SGOT) 17 U/L (15-37); Alanine Aminotransfer ALT/SGPT 38 U/L (13-56); Albumin, Serum 4.1 g/dL (3.2-5.0); Alkaline Phosphatase 53 U/L (45-117); Anion Gap 5 (5-15); BUN 16 mg/dL (7-18); BUN/Creat Ratio 22.8 RATIO (10-20); Calcium,Total 9.1 mg/dL (8.5-10.1); Chloride 108 mmol/L (98-107); EST Glomerular Filtration Rate 91 mL/min (>60); Est Glom Filt Rate - Afr Amer 110 mL/min (>60); Estimated Creatinine Clearance 82.01 ml/min; Globulin 3.8 g/dL (2.2-4.2); Glucose 93 mg/dL (74-106); Potassium 3.9 mmol/L (3.5-5.1); Protein, Total 7.9 g/dL (6.4-8.2); Sodium Level 142 mmol/L (136-145)
--- NOTE | 2021-11-08 13:00 | EMB_PTH ---
PATIENT: NIKHIL [place]GA [place] [facility] [id number] AGE/SX: 56/F ROOM: RE11/08/[address]: Dr. Funmi Zimmerman MD : 1965 BED: DIS: 11/08/2021 SPEC #: [id number] RECD: 11/08/21 14:12 STATUS: JUAN MIGUEL GUSTAFSON #: [id number] SILAS: 11/08/21 13:[address]: Funmi Zimmerman DEPT: SURGICAL PATHOLOGY RECD BY: Seun Noel ENTERED: 11/09/21 09:46 SP TYPE: ENDOM BX/C OTHR DR: Dr. Jaynat Nieto MD Tissues: Endometrium, NOS Procedures: Surgery Specimen Level IV HEADER OPERATION: Hysteroscopy, D & C PRE-OP DIAGNOSIS: Cervical polyp TISSUE SUBMITTED: Endometrial curettings and cervical polyp MICROSCOPIC DIAGNOSIS Endometrial curettings and cervical polyp: Fragments of benign endometrial epithelium and superficial fragment of benign endometrial tissue. Fragments of benign ecto- and endocervical epithelium, blood and mucous. Cervical polyp, consistent with submucosal leiomyoma involving cervix and lower uterine segment. TIKA:abdirizak 11/10/2021 MICROSCOPIC DESCRIPTION Slides are reviewed. GROSS DESCRIPTION Received in fixative is one container labeled with the patient's name and designated endometrial curettings and cervical polyp. The specimen consists of multiple fragments of hemorrhagic soft tissue that in aggregate measure 3 x 2.5 x 0.2 cm. Also present in the container is a piece of calloway-pink polyp measuring 2.2 x 1.5 x 0.8 cm. The polyp is serially sectioned. The entire specimen is submitted in three cassettes as follows: 1 ? hemorrhagic tissue, 2 & 3 ? polyp. / TIKA:abdirizak 11/09/2021 TC: 1 [facility]: [id number]
[2021-11-08] MEDS: Lidocaine 1% (20 ml mdv) 20 ML Vial (13:15)
--- NOTE | 2021-11-08 13:31 | OP.PCM_ITS ---
Problems Associated Problem List Diagnoses (1) Cervical polyp: Report of Operation Date of Procedure: 11/08/21 Pre-Operative Diagnosis: see problem list Post-Operative Diagnosis: same Surgery/Procedure Performed:: D&C hysteroscopy polypectomy brick loader: None Type of Anesthesia: Local MAC Special Medications: none Specimen's removed: EMC, polyp Drains: none Estimated Blood Loss (mL): 50 Fluids Replaced: crystalloid Description of Procedure: Patient was prepped and draped in a normal sterile fashion under MAC anesthesia. A weighted speculum was placed in the vagina and the anterior lip of the cervix was grasped with a single-tooth tenaculum. A paracervical block was placed with 1% lidocaine. endocervical polyp was grasped with poly pforceps twisted and removed, 3 x 1.5 cm in size. Cervix was progressively dilated to allow passage of a 5 mm hysteroscope. The lining was fully visualized and noted to have thin atrophic lining . Uterine sounded to 7 cm. sharp curretage performed , and all specimens were sent to pathology. All instruments were removed from the vagina and excellent hemostasis was noted. Patient was awoken and taken to recovery in stable condition. Grafts/Implants Used: none Complications none Admit VTE Documentation VTE Present on Admission: No VTE Mechan Device Prophylaxis: SCD's Multi Select Codes Urinary/Genital Urinary/Genital CPT Codes: 72777 Hysteroscopy,EMC, Polypectomy
--- NOTE | 2021-11-08 13:33 | EX.PCM.DISCH ---
Discharge Instructions Procedure D&C Diet Discharge Diet: No restrictions Activity Discharge Activity: Return to Normal Activity, May Shower and May Take a Tub Bath (after 1 week) May resume sexual activity in: 1-2 weeks Weight Bearing Status: Weight bearing as tolerated Lifting Restrictions: none Dressing / Incision Call your doctor if you observe: Fever of 101 or Higher, Using more than 1 pad per hour, Shortness of breath and Uncontrolled pain Follow Up Care Please Follow Up With: Funmi Zimmerman MD When: Call [phone] to schedule appointment. Test Results: Test results from this visit will be discussed in further detail at your follow-up appointment, if applicable. Discharge Plan Admission Attending Provider: Funmi Zimmerman Primary Care Provider: Jayant Nieto Discharge Orders/Prescriptions Prescriptions: No Action fenofibrate 150 mg capsule 145 mg PO DAILY RF: 0 cholecalciferol (vitamin D3) 50 mcg (2,000 unit) capsule 50 mcg PO DAILY RF: 0 cyanocobalamin (vitamin B-12) 1,000 mcg capsule 1,000 mcg PO DAILY RF: 0 loratadine [Claritin] 10 mg tablet 10 mg PO PRN PRN (Reason: Allergies) RF: 0 escitalopram oxalate [Lexapro] 10 mg tablet 10 mg PO DAILY RF: 0 fluticasone propionate 1 SPRAY spray,suspension 2 spray NASAL DAILY RF: 0 levomefolate calcium 7.5 mg tablet 7.5 mg PO DAILY RF: 0 Referrals / Follow Up: Jayant Nieto MD [Primary Care Provider] - Disposition Disposition (needs filled in before D/C Order can be placed): Home, Self Care
== END 2021-11-08 23:59 | disposition home or self-care (01) ==
LOC: SDC 11:25 → AC 11:28
PROVIDERS: PCP Family Medicine; Referring Provider Obstetrics & Gynecology; Visit Provider Obstetrics & Gynecology
PROC: 0UB98ZZ Excision of Uterus, Via Natural or Artificial Opening Endoscopic (ICD-10-PCS; CPT 58558; principal; 2021-11-08 12:45)
DX: N84.1 Polyp of cervix uteri (principal); E78.5 Hyperlipidemia, unspecified; Z78.0 Asymptomatic menopausal state; Z79.899 Other long term (current) drug therapy
CPT/HCPCS: 58558; 00952; 80053; 85025; 86850; 86900; 86901; 88305; 93005; J7120; J2405

== ENCOUNTER → 2022-02-08 | Outpatient (CLI) | payer OTHER, SELFPAY | END | disposition home or self-care (01) | PROVIDERS: PCP Family Medicine; Referring Provider Family Medicine; Visit Provider Family Medicine | DX: Z20.822 Contact with and (suspected) exposure to COVID-19 (principal) | CPT/HCPCS: 36415 ==

== ENCOUNTER → 2022-07-20 | Outpatient (CLI) | payer OTHER, SELFPAY ==
[2022-07-20 12:48] LABS: ALB/GLOB Ratio 1.3 RATIO (0.9-2.4); AST(SGOT) 18 U/L (15-37); Alanine Aminotransfer ALT/SGPT 47 U/L (13-56); Albumin, Serum 3.8 g/dL (3.2-5.0); Alkaline Phosphatase 51 U/L (45-117); Anion Gap 6 (5-15); BUN 20 mg/dL (7-18); BUN/Creat Ratio 26.6 RATIO (10-20); Calcium,Total 9.4 mg/dL (8.5-10.1); Chloride 105 mmol/L (98-107); Creatinine, Serum 0.75 mg/dL (0.55-1.02); EST Glomerular Filtration Rate 84 mL/min (>60); Est Glom Filt Rate - Afr Amer 101 mL/min (>60); Glucose 97 mg/dL (74-106); Potassium 3.8 mmol/L (3.5-5.1); Protein, Total 6.8 g/dL (6.4-8.2); Sodium Level 140 mmol/L (136-145); Thyroid Stim Hormone (TSH) 2.14 uIU/mL (0.358-3.74)
== END | disposition home or self-care (01) ==
LOC: MTLAB 09:35
PROVIDERS: PCP Family Medicine; Referring Provider Family Medicine; Visit Provider Family Medicine
DX: R00.2 Palpitations (principal)
CPT/HCPCS: 36415; 80053; 83735; 84443

== ENCOUNTER → 2022-10-26 | Outpatient (CLI) | payer OTHER, SELFPAY ==
--- NOTE | 2022-10-26 10:51 | BI_ITS ---
MAMMOGRAPHY - BILATERAL SCREENING 3-D TOMOSYNTHESIS REASON FOR EXAM: Female, 57 years old. Routine screening PERTINENT HISTORY: Sister with breast cancer, previous reduction surgery.. TECHNIQUE: 2-D mammograms and 3-D Tomosynthesis of the breast (s) were performed. CAD was performed. COMPARISON: 07/14/2020 FINDINGS: The breast composition is heterogeneously dense that can obscure small breast masses. Scattered benign calcifications are seen. No dense spiculated masses or suspicious microcalcifications are identified. No architectural distortion is identified. There is no skin thickening or retraction. There has been no significant change since the prior study. BI/SCRN MAMM (CAD)W/LISA BILAT IMPRESSION: No mammographic signs of malignancy. Routine yearly mammograms recommended. ASSESSMENT CATEGORY: BIRADS Category 2: Benign. A letter regarding these results will be sent to the patient by the facility within 30 days. FOLLOW UP RECOMMENDATION: Yearly follow up mammogram recommended. (A) Approximately 10% of breast cancers are not detected by mammography. A normal mammogram should not delay biopsy of a clinically suspicious abnormality. Electronically Signed: Harrison Burgess MD at 11:30 EDT ,
== END | disposition home or self-care (01) ==
LOC: OPBI 10:49
PROVIDERS: PCP Family Medicine; Visit Provider Obstetrics & Gynecology
DX: Z12.31 Encounter for screening mammogram for malignant neoplasm of breast (principal)
CPT/HCPCS: 77063; 77067

== ENCOUNTER → 2023-11-05 | Outpatient (CLI) | payer OTHER, SELFPAY ==
--- NOTE | 2023-11-05 15:01 | BI_ITS ---
MAMMOGRAPHY - BILATERAL SCREENING REASON FOR EXAM: Female, 58 years old. Routine annual screening examination. PERTINENT HISTORY: Sister with breast cancer. History of prior bilateral breast reduction surgery. TECHNIQUE: Digital bilateral breast lisa (3D mammographic acquisition) in the CC and MLO projections. 2-D mediolateral oblique (MLO) and craniocaudad (CC) views of both breasts were obtained. CAD: Full Field Digital Mammography with Computer Added Detection was performed. COMPARISON: Comparison is made with prior study dated October 26, 2022 and October 18, 2021. FINDINGS: Breast Composition: The breasts are heterogeneously dense, which may obscure small masses. There are no dominant masses or suspicious calcifications. Stable bilateral fat containing axillary lymph nodes. No other significant abnormalities are identified. There has been no significant change since the prior study. BI/SCRN MAMM (CAD)W/LISA BILAT IMPRESSION: Stable bilateral screening mammogram. Yearly follow-up mammogram recommended. (A) ASSESSMENT CATEGORY: BIRADS Category 2: Benign. A letter regarding these results will be sent to the patient by the facility within 30 days. Approximately 10% of breast cancers are not detected by mammography. A normal mammogram should not delay biopsy of a clinically suspicious abnormality. [id number] Electronically Signed: Kevan Lopez MD at 16:39 EDT ,
== END | disposition home or self-care (01) ==
LOC: OPBI 15:01
PROVIDERS: PCP Family Medicine; Referring Provider Obstetrics & Gynecology; Visit Provider Obstetrics & Gynecology
DX: Z12.31 Encounter for screening mammogram for malignant neoplasm of breast (principal)
CPT/HCPCS: 77063; 77067

== ENCOUNTER → 2023-11-26 | Outpatient (CLI) | payer OTHER, SELFPAY ==
--- NOTE | 2023-11-26 08:35 | EKG12_ITS ---
Test Reason : PRE-OP Blood Pressure : / mmHG Vent. Rate : 070 BPM Atrial Rate : 070 BPM P-R Int : 188 ms QRS Dur : 080 ms QT Int : 418 ms P-R-T Axes : 035 -02 003 degrees QTc Int : 451 ms Normal sinus rhythm Inferior infarct , age undetermined T wave abnormality, consider anterior ischemia Abnormal ECG Confirmed by KEMAL US, EDGARD ([id number]), acquisitions editor TIO NOLAND ([id number]) on 11/26/2023 1:25:32 PM Referred By: Lisa Cervantes Confirmed By:EDGARD SOMMER MD
[2023-11-26 09:33] LABS: Absolute Lymphocyte Count 1.55 X10^3/uL (0.83-4.51); Absolute Neutrophil Count 1.6 X10^3/uL (2.0-7.7); Basophil# 0.03 X10^3/uL; Basophil% 0.8 % (0-1); Eosinophil# 0.08 X10^3/uL; Eosinophils% 2.2 % (0-5); Hemoglobin 13.6 g/dL (12.0-15.0); Lymphocyte # 1.55 X10^3/ul (0.83-4.51); Lymphocyte % 42.3 % (19-41); Mean Corp Hgb Conc 33.2 g/dL (32-36); Mean Corpuscular Hgb 30.4 pg (27.0-32.0); Mean Corpuscular Volume 91.7 fL (81-99); Mean Platelet Vol. 9.8 fl (6.2-12.0); Monocyte# 0.34 X10^3/uL; Monocyte% 9.3 % (0-10); NRBC Flagged by Analyzer 0 % (0-5); Neutrophil # 1.64 X10^3/uL (2.7-7.7); Neutrophil % 44.9 % (47-70); Platelet Count 224 K/mm3 (150-450); RBC Distribution Width CV 12.4 % (11.6-14.6); RBC Distribution Width SD 41.7 fl (35.1-43.9); Red Blood Count 4.47 M/mm3 (4.2-5.4); White Blood Count 3.7 K/mm3 (4.4-11.0)
[2023-11-26 10:16] LABS: Anion Gap 5 (5-15); BUN 23 mg/dL (7-18); BUN/Creat Ratio 30.8 RATIO (10-20); Calcium,Total 8.9 mg/dL (8.5-10.1); Chloride 109 mmol/L (98-107); Creatinine, Serum 0.75 mg/dL (0.55-1.02); EST Glomerular Filtration Rate 84 mL/min (>60); Est Glom Filt Rate - Afr Amer 102 mL/min (>60); Glucose 85 mg/dL (74-106); Potassium 4.2 mmol/L (3.5-5.1); Sodium Level 141 mmol/L (136-145)
[2023-11-26 16:32] LABS: Bacteria 0 SEEN /hpf (None Seen); Mucous, Urine 0 SEEN /hpf (<or=2+); Red Blood Cells-Urine 0 SEEN /hpf (0-5); Squamous Epithelial Cells - UA 0 SEEN /hpf (5-10); White Blood Cells 0 SEEN /hpf (0-5)
[2023-11-26 17:27] LABS: Thyroid Stim Hormone (TSH) 2.11 uIU/mL (0.358-3.74)
[2023-11-26 17:56] LABS: Color, Urine Yellow (Yellow); Glucose, Dipstick Normal (Normal); Ketone-Dipstick Negative (Negative); Leukocyte Esterase-Dipstick 25 /ul (Negative); Nitrite-Dipstick Negative (Negative); Occult Blood-Urine Negative /ul (Negative); Protein-Dipstick Negative (Negative); Specific Gravity, Urine 1.015 (1.002-1.030); Urine Bilirubin Dipstick Negative (Negative); Urine Clarity Clear (Clear); Urine Urobilinogen Normal (Normal); Urine pH 6.5 (5.0 - 8.0)
== END | disposition home or self-care (01) ==
PROVIDERS: PCP Family Medicine; Referring Provider Physician Assistant Surgical; Visit Provider Physician Assistant Surgical
DX: Z01.818 Encounter for other preprocedural examination (principal); R30.0 Dysuria; F32.9 Major depressive disorder, single episode, unspecified
CPT/HCPCS: 36415; 80048; 81001; 84443; 85025; 87086; 93005

== ENCOUNTER → 2023-12-05 | Outpatient (CLI) | payer OTHER, SELFPAY ==
--- NOTE | 2023-12-06 14:47 | STRESSREP ---
Stress Test Report Date: 12/05/2023 Procedure: Exercise tolerance test Indications: Chest pain Consent: Per the patient Procedure: The patient exercised on a Clarence protocol for 6 minutes achieving a peak heart rate of 131 bpm (81% predicted maximal heart rate) with a peak blood pressure 152/78 mmHg and a peak MET capacity of approximately 7 MET's. The baseline ECG demonstrated normal sinus rhythm. The peak exercise ECG demonstrated sinus tachycardia with no significant ischemic changes. [There were no cardiac dysrhythmias pretest, during exercise, or recovery]. The functional capacity was considered normal for age. The patient had no complaint of chest discomfort during exercise or recovery. The examination was discontinued secondary to right knee discomfort. Impression: 1. Inability to reach 85% of maximal age-predicted heart rate decreases the sensitivity of the test 2. Stress test is negative for exercise-induced chest pain. 3. Stress test test is negative for exercise-induced EKG changes of ischemia. 4. Functional capacity is normal for age This note was generated with [employer] software. It may contain incorrect words, spelling, and punctuation that were not noted in checking the note before signing.
== END | disposition home or self-care (01) ==
LOC: CVS 10:03
PROVIDERS: PCP Family Medicine; Referring Provider Family Medicine; Visit Provider Family Medicine
DX: R07.89 Other chest pain (principal)
CPT/HCPCS: 93017

== ENCOUNTER → 2024-02-11 | Outpatient (CLI) | payer OTHER, SELFPAY ==
[2024-02-11 10:44] LABS: ALB/GLOB Ratio 1.1 RATIO (0.9-2.4); AST(SGOT) 25 U/L (15-37); Alanine Aminotransfer ALT/SGPT 60 U/L (13-56); Albumin, Serum 3.8 g/dL (3.2-5.0); Alkaline Phosphatase 59 U/L (45-117); Anion Gap 6 (5-15); BUN 16 mg/dL (7-18); Chloride 106 mmol/L (98-107); Cholesterol 170 mg/dL (200); EST Glomerular Filtration Rate 91 mL/min (>60); Est Glom Filt Rate - Afr Amer 111 mL/min (>60); Globulin 3.5 g/dL (2.2-4.2); Glucose 89 mg/dL (74-106); High Density Lipoprotein 38 mg/dL; Potassium 4.1 mmol/L (3.5-5.1); Protein, Total 7.3 g/dL (6.4-8.2); Sodium Level 139 mmol/L (136-145); Thyroid Stim Hormone (TSH) 2.37 uIU/mL (0.358-3.74); Triglycerides 192 mg/dL; Very Low Density Lipoprotein 38 mg/dL (5-40)
== END | disposition home or self-care (01) ==
PROVIDERS: PCP Family Medicine; Referring Provider Family Medicine; Visit Provider Family Medicine
DX: E66.9 Obesity, unspecified (principal); Z68.30 Body mass index [BMI] 30.0-30.9, adult
CPT/HCPCS: 36415; 80053; 80061; 84443

== ENCOUNTER → 2024-08-26 | Outpatient (CLI) | payer OTHER, SELFPAY ==
[2024-08-26 15:17] LABS: Absolute Lymphocyte Count 1.48 X10^3/uL (0.83-4.51); Absolute Neutrophil Count 3.2 X10^3/uL (2.0-7.7); Basophil# 0.01 X10^3/uL; Basophil% 0.2 % (0-1); Eosinophil# 0.13 X10^3/uL; Eosinophils% 2.5 % (0-5); Hematocrit 41.2 % (37-47); Hemoglobin 14.1 g/dL (12.0-15.0); Lymphocyte # 1.48 X10^3/ul (0.83-4.51); Lymphocyte % 28.2 % (19-41); Mean Corp Hgb Conc 34.2 g/dL (32-36); Mean Corpuscular Volume 90.5 fL (81-99); Mean Platelet Vol. 9.6 fl (6.2-12.0); Monocyte# 0.39 X10^3/uL; Monocyte% 7.4 % (0-10); NRBC Flagged by Analyzer 0 % (0-5); Neutrophil # 3.21 X10^3/uL (2.7-7.7); Neutrophil % 61.3 % (47-70); Platelet Count 296 K/mm3 (150-450); RBC Distribution Width CV 12.5 % (11.6-14.6); RBC Distribution Width SD 40.9 fl (35.1-43.9); Red Blood Count 4.55 M/mm3 (4.2-5.4); White Blood Count 5.2 K/mm3 (4.4-11.0)
[2024-08-26 15:37] LABS: ALB/GLOB Ratio 1.1 RATIO (0.9-2.4); AST(SGOT) 25 U/L (15-37); Alanine Aminotransfer ALT/SGPT 60 U/L (13-56); Albumin, Serum 3.7 g/dL (3.2-5.0); Alkaline Phosphatase 54 U/L (45-117); Anion Gap 6 (5-15); BUN 17 mg/dL (7-18); Calcium,Total 9.1 mg/dL (8.5-10.1); Chloride 108 mmol/L (98-107); Creatinine, Serum 0.77 mg/dL (0.55-1.02); EST Glomerular Filtration Rate 81 mL/min (>60); Est Glom Filt Rate - Afr Amer 98 mL/min (>60); Globulin 3.5 g/dL (2.2-4.2); Glucose 109 mg/dL (74-106); Lipase 44 U/L (13-75); Potassium 3.4 mmol/L (3.5-5.1); Protein, Total 7.2 g/dL (6.4-8.2); Sodium Level 139 mmol/L (136-145)
== END | disposition home or self-care (01) ==
LOC: MTLAB 13:10
PROVIDERS: PCP Family Medicine; Referring Provider Family Medicine; Visit Provider Family Medicine
DX: R19.7 Diarrhea, unspecified (principal)
CPT/HCPCS: 36415; 80053; 83690; 85025; 86140

== ENCOUNTER → 2024-08-29 | Outpatient (CLI) | payer OTHER, SELFPAY ==
[2024-08-29 17:39] LABS: Absolute Lymphocyte Count 1.67 X10^3/uL (0.83-4.51); Absolute Neutrophil Count 3.2 X10^3/uL (2.0-7.7); Basophil# 0.02 X10^3/uL; Basophil% 0.4 % (0-1); Eosinophil# 0.13 X10^3/uL; Eosinophils% 2.4 % (0-5); Hematocrit 41.2 % (37-47); Hemoglobin 13.7 g/dL (12.0-15.0); Lymphocyte # 1.67 X10^3/ul (0.83-4.51); Lymphocyte % 30.7 % (19-41); Mean Corp Hgb Conc 33.3 g/dL (32-36); Mean Corpuscular Hgb 30.4 pg (27.0-32.0); Mean Corpuscular Volume 91.4 fL (81-99); Mean Platelet Vol. 9.7 fl (6.2-12.0); Monocyte# 0.39 X10^3/uL; Monocyte% 7.2 % (0-10); NRBC Flagged by Analyzer 0 % (0-5); Neutrophil # 3.19 X10^3/uL (2.7-7.7); Neutrophil % 58.6 % (47-70); Platelet Count 284 K/mm3 (150-450); RBC Distribution Width CV 12.8 % (11.6-14.6); RBC Distribution Width SD 42.5 fl (35.1-43.9); Red Blood Count 4.51 M/mm3 (4.2-5.4); White Blood Count 5.4 K/mm3 (4.4-11.0)
[2024-08-29 17:50] LABS: Anion Gap 5 (5-15); BUN 15 mg/dL (7-18); BUN/Creat Ratio 19.5 RATIO (10-20); CRP 7.98 mg/L (0.0-3.0); Calcium,Total 8.8 mg/dL (8.5-10.1); Chloride 111 mmol/L (98-107); Creatinine, Serum 0.77 mg/dL (0.55-1.02); EST Glomerular Filtration Rate 81 mL/min (>60); Est Glom Filt Rate - Afr Amer 98 mL/min (>60); Glucose 112 mg/dL (74-106); Potassium 3.5 mmol/L (3.5-5.1); Sodium Level 141 mmol/L (136-145)
== END | disposition home or self-care (01) ==
LOC: MTLAB 15:36
PROVIDERS: PCP Family Medicine; Referring Provider Family Medicine; Visit Provider Family Medicine
DX: R19.7 Diarrhea, unspecified (principal)
CPT/HCPCS: 36415; 80048; 85025; 86140; 87506

== ENCOUNTER → 2024-09-05 | Outpatient (CLI) | payer OTHER, SELFPAY ==
[2024-09-08 14:07] LABS: Giardia Lamblia, Stool EIA Negative (Negative)
== END | disposition home or self-care (01) ==
LOC: MTLAB 10:42
PROVIDERS: PCP Family Medicine; Referring Provider Family Medicine; Visit Provider Family Medicine
DX: R19.7 Diarrhea, unspecified (principal)
CPT/HCPCS: 36415; 87329

== ENCOUNTER → 2024-09-29 | Outpatient (CLI) | payer OTHER, SELFPAY ==
--- NOTE | 2024-09-29 08:11 | CT_ITS ---
PROCEDURE: ABDOMEN WITH IV CONTRAST REASON FOR EXAM: History of gastroparesis and diarrhea for several weeks. TECHNIQUE: Abdomen CT with intravenous contrast. Oral contrast was also used. IV CONTRAST: 100 cc of Isovue-300. COMPARISON: Comparison is made with prior study dated April 06, 2020. FINDINGS: Lung bases: Clear Liver: Diffuse fatty infiltration. Mild hepatomegaly. Gallbladder: Tiny gallstone seen along the dependent portion of the gallbladder lumen. Spleen: Unremarkable. Pancreas: Unremarkable. Adrenals: Unremarkable. Kidneys: Tiny left renal cyst. Bowel: Visualized loops of bowel in the upper abdomen are unremarkable. Lymph nodes: No suspicious lymph node enlargement. Vasculature: Unremarkable Peritoneum / Retroperitoneum: No ascites or free air at the upper abdomen. Bones: Unremarkable. CT/Abdomen WITH IV Contrast IMPRESSION: Fatty infiltration of the liver. Mild hepatomegaly. Tiny cysts seen in the left kidney. One or more dose reduction techniques were used (e.g., Automated exposure contr ol, adjustment of the mA and/or kV according to patient size, use of iterative reconstruction technique). Reading Location: [id number]
== END | disposition home or self-care (01) ==
PROVIDERS: PCP Family Medicine; Referring Provider Family Medicine; Visit Provider Family Medicine
DX: K31.89 Other diseases of stomach and duodenum (principal)
CPT/HCPCS: 74160; Q9967

== ENCOUNTER → 2024-11-05 | Outpatient (CLI) | payer OTHER, SELFPAY ==
--- NOTE | 2024-11-05 12:30 | BI_ITS ---
EXAM: SCRN MAMM (CAD)W/LISA BILAT 11/05/2024 CLINICAL HISTORY: F, Age 59 y/o , SCREENING FOR BREAST CANCER BREAST CANCER RISK ASSESSMENT: Has not been calculated TECHNIQUE: Bilateral screening digital breast tomosynthesis with 2D images. Computer aided detection. COMPARISON: Prior exam(s) dated 11/05/1999 and 10/26/2022. FINDINGS: TISSUE DENSITY: The breast tissue is composed of scattered area of fibroglandular density. Bilateral Breast Mammographic Findings: There are no other dominant masses, areas of architectural distortion, or suspicious calcifications. Benign-appearing round microcalcifications are seen in both breasts. A benign-appearing macrocalcification is seen in the right breast. A stable 3.7 cm asymmetric masslike density in the superior outer, far posterior aspect of the right breast is noted. This appears to represent residual fibroglandular tissue. BI/SCRN MAMM (CAD)W/LISA BILAT IMPRESSION: Right Breast: BIRADS 2 BENIGN FINDING. Left Breast: BIRADS 2 BENIGN FINDING. OVERALL FINAL ASSESSMENT: BIRADS 2 BENIGN FINDING RECOMMENDATION: Routine annual follow-up in 1 Year A letter with findings and recommendations will be mailed to the patient. Reading Location: [id number]
== END | disposition home or self-care (01) ==
LOC: OPBI 12:27
PROVIDERS: PCP Family Medicine; Referring Provider Obstetrics & Gynecology; Visit Provider Obstetrics & Gynecology
DX: Z12.31 Encounter for screening mammogram for malignant neoplasm of breast (principal)
CPT/HCPCS: 77063; 77067

== ENCOUNTER → 2024-12-09 | Outpatient (CLI) | payer OTHER, SELFPAY ==
[2024-12-12 16:09] LABS: HPV APTIMA, High Risk Negative (Negative)
== END | disposition home or self-care (01) ==
LOC: LABSPEC 16:22
PROVIDERS: PCP Family Medicine; Referring Provider Obstetrics & Gynecology; Visit Provider Obstetrics & Gynecology
DX: Z12.4 Encounter for screening for malignant neoplasm of cervix (principal)
CPT/HCPCS: 87624; 88175; G0145

== ENCOUNTER → 2025-02-04 | Outpatient (CLI) | payer OTHER, SELFPAY ==
[2025-02-04 10:33] LABS: Absolute Lymphocyte Count 1.59 X10^3/uL (0.83-4.51); Absolute Neutrophil Count 1.9 X10^3/uL (2.0-7.7); Basophil# 0.04 X10^3/uL; Eosinophil# 0.05 X10^3/uL; Eosinophils% 1.3 % (0-5); Hematocrit 40.3 % (37-47); Hemoglobin 13.5 g/dL (12.0-15.0); Lymphocyte # 1.59 X10^3/ul (0.83-4.51); Lymphocyte % 41.2 % (19-41); Mean Corp Hgb Conc 33.5 g/dL (32-36); Mean Corpuscular Hgb 30.8 pg (27.0-32.0); Mean Platelet Vol. 9.9 fl (6.2-12.0); Monocyte# 0.31 X10^3/uL; NRBC Flagged by Analyzer 0 % (0-5); Neutrophil # 1.86 X10^3/uL (2.7-7.7); Neutrophil % 48.2 % (47-70); Platelet Count 232 K/mm3 (150-450); RBC Distribution Width CV 12.3 % (11.6-14.6); RBC Distribution Width SD 41.5 fl (35.1-43.9); Red Blood Count 4.38 M/mm3 (4.2-5.4); White Blood Count 3.9 K/mm3 (4.4-11.0)
[2025-02-04 11:23] LABS: ALB/GLOB Ratio 1.6 RATIO (0.9-2.4); AST(SGOT) 24 U/L (<=31); Alanine Aminotransfer ALT/SGPT 36 U/L (<=34); Albumin, Serum 4.3 g/dL (3.4-4.8); Alkaline Phosphatase 54 U/L (35-104); Anion Gap 11 (5-15); BUN 20 mg/dL (4-19); BUN/Creat Ratio 27.3 RATIO (10-20); Calcium,Total 9.3 mg/dL (7.6-11.0); Carbon Dioxide 23.8 mmol/L (21.0-32.0); Chloride 105 mmol/L (98-108); Cholesterol 173 mg/dL (<=200); Creatinine, Serum 0.72 mg/dL (0.70-1.20); EST Glomerular Filtration Rate 95 (>60); Globulin 2.8 g/dL (2.2-4.2); Glucose 95 mg/dL (70-99); High Density Lipoprotein 38 mg/dL; Lipase 40 U/L (13-75); Low Density Lipoprotein Calc. 108 mg/dL; Potassium 4.4 mmol/L (3.3-5.1); Protein, Total 7.1 g/dL (5.9-8.4); Sodium Level 141 mmol/L (133-145); Total Bilirubin 0.33 mg/dL (0.00-1.30); Triglycerides 135 mg/dL; Very Low Density Lipoprotein 27 mg/dL (5-40); cholesterol:hdl ratio screen 4.51
[2025-02-04 11:30] LABS: Ferritin 81 ng/mL (22-378); Vitamin B12 387 pg/mL (180-914)
== END | disposition home or self-care (01) ==
LOC: MTLAB 08:02
PROVIDERS: PCP Family Medicine; Referring Provider Family Medicine; Visit Provider Family Medicine
DX: K76.0 Fatty (change of) liver, not elsewhere classified (principal); E78.1 Pure hyperglyceridemia
CPT/HCPCS: 36415; 80053; 80061; 82607; 82728; 82746; 83690; 85025

== ENCOUNTER → 2025-06-30 | Outpatient (CLI) | payer OTHER, SELFPAY ==
[2025-06-30 17:39] LABS: Hematocrit 40.8 % (37-47); Hemoglobin 13.7 g/dL (12.0-15.0); Immature Granulocytes Count 0.020 X10^3/uL (0.0-0.0); Mean Corp Hgb Conc 33.6 g/dL (32-36); Mean Corpuscular Volume 92.3 fL (81-99); Mean Platelet Vol. 9.5 fl (6.2-12.0); NRBC Flagged by Analyzer 0 % (0-5); Platelet Count 255 K/mm3 (150-450); RBC Distribution Width CV 12.2 % (11.6-14.6); RBC Distribution Width SD 41.8 fl (35.1-43.9); Red Blood Count 4.42 M/mm3 (4.2-5.4); White Blood Count 4.7 K/mm3 (4.4-11.0)
[2025-06-30 18:48] LABS: AST(SGOT) 26 U/L (<=31); Alanine Aminotransfer ALT/SGPT 43 U/L (<=34); Albumin, Serum 4.3 g/dL (3.4-4.8); Alkaline Phosphatase 55 U/L (35-104); Anion Gap 13 (5-15); BUN 18 mg/dL (4-19); BUN/Creat Ratio 22.2 RATIO (10-20); Calcium,Total 9.7 mg/dL (7.6-11.0); Carbon Dioxide 24.2 mmol/L (21.0-32.0); Chloride 104 mmol/L (98-108); Free T3 3.0 pg/mL (2.18-3.98); Globulin 2.7 g/dL (2.2-4.2); Glucose 86 mg/dL (70-99); Potassium 3.7 mmol/L (3.3-5.1)
== END | disposition home or self-care (01) ==
LOC: MTLAB 15:03
PROVIDERS: PCP Family Medicine; Referring Provider Family Medicine; Visit Provider Family Medicine
DX: K76.0 Fatty (change of) liver, not elsewhere classified (principal); F33.9 Major depressive disorder, recurrent, unspecified
CPT/HCPCS: 36415; 80053; 84439; 84443; 84481; 85025